=== PATIENT | female | born 1970 | race Caucasian/White ===

== ENCOUNTER 2020-08-01 14:54 | Outpatient (REF) | payer MEDICAID, SELFPAY ==
--- NOTE | 2020-08-01 15:28 | XR_ITS ---
EXAMINATION: XR ABDOMEN COMPLETE CLINICAL INDICATION: Abdominal pain COMPARISON: None TECHNIQUE: 2 views of the abdomen. FINDINGS: Moderate volume of stool throughout the colon. No abnormally dilated bowel loop. Nonobstructive bowel pattern. No radiopaque urinary calculus. The lung bases are normally aerated. XR/XR abdomen min 2V IMPRESSION: Unremarkable examination.
[2020-08-01 16:16] LABS: Glucose Urine UA NEG (NEG); Leukocyte Esterase Urine NEG (NEG); Nitrite Urine NEG (NEG); Specific Gravity - Urine 1.025 (1.005-1.025); Urine Blood NEG (NEG); Urine Ketones NEG (NEG); Urine Protein NEG (NEG-TRACE)
[2020-08-01 16:20] LABS: Appearance Urine CLEAR; Color Urine YELLOW
== END 2020-08-01 14:55 | disposition home or self-care (01) ==
LOC: HO.LAB 14:54
PROVIDERS: PCP Internal Medicine; Visit Provider Internal Medicine
DX: R10.9 Unspecified abdominal pain (principal)
CPT/HCPCS: 74019; 81003

== ENCOUNTER 2020-08-04 19:14 | Emergency (ER) | payer MEDICAID, SELFPAY ==
[2020-08-04 20:04] VITALS: BP 138/74; PULSE 80; RESP 16; TEMP 37.1; O2SAT 98; BMI 21.2
[2020-08-04 20:36] LABS: Glucose Urine UA NEG (NEG); Leukocyte Esterase Urine NEG (NEG); Nitrite Urine NEG (NEG); Specific Gravity - Urine 1.025 (1.005-1.025); Urine Blood NEG (NEG); Urine Ketones NEG (NEG); Urine Protein NEG (NEG-TRACE)
[2020-08-04 20:38] LABS: Appearance Urine CLEAR; Color Urine YELLOW
[2020-08-04 20:39] LABS: UPreg QC Valid YES; Urine Pregnancy NEGATIVE (NEGATIVE)
--- NOTE | 2020-08-04 21:41 | PC.NURSE ---
reports no senes of taste or smell since november. 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
[2020-08-04 21:48] LABS: MANUAL DIFF FLAG NO
[2020-08-04 21:50] LABS: Basophils Percent Auto 0.1 % (0-2); Eosinophils Absolute Auto 0.1 X10*3/uL (0.0-0.4); Eosinophils Percent Auto 1.2 % (0-4); Hematocrit 41.7 % (37-47); Hemoglobin 13.7 g/dl (12.0-16.0); Imm Gran Abs Auto 0.02 X10*3/uL (0.00-0.03); Imm Gran Pct Auto 0.3 % (0.0-0.4); Lymphocytes Absolute Auto 1.9 X10*3/uL (1.2-4.9); Lymphocytes Percent Auto 25.6 % (20-40); Mean Corpuscular HGB Conc 32.9 g/dl (31.0-35.0); Mean Corpuscular Hemoglobin 29.2 pg (27.0-33.0); Mean Corpuscular Volume 88.9 fL (80-98); Mean Platelet Volume 9.4 fL (9.4-12.3); Monocytes Absolute Auto 0.5 X10*3/uL (0.1-1.2); Monocytes Percent Auto 6.6 % (2-11); Neutrophils Percent Auto 66.2 % (45-73); Platelet Count 262 X10*3/uL (160-400); Red Blood Count 4.69 X10*6/uL (4.20-5.50); Red Cell Distribution Width 12.6 % (11.0-16.0); White Blood Count 7.5 X10*3/uL (4.8-10.8)
[2020-08-04] MEDS: Ketorolac Tromethamine 30 MG/ML VIAL IVPUSH (22:10)
[2020-08-04] MEDS: ondansetron HCL 4 MG/2 ML VIAL IVPUSH (22:10)
[2020-08-04] MEDS: 0.9 % Sodium Chloride 1,000 ML 999 ML IVCONT (22:10)
[2020-08-04 22:12] LABS: Alanine Aminotransferase 17 U/L (0-31); Albumin Level 4.6 g/dL (3.5-5.0); Alkaline Phosphatase 99 U/L (39-117); Anion Gap 12 (12-20); Aspartate Amino Transferase 24 U/L (5-31); Bilirubin Total 0.4 mg/dL (0.0-1.0); Blood Urea Nitrogen 13 mg/dL (9-16); Calcium 9.2 mg/dL (8.4-10.2); Carbon Dioxide 30 mmol/L (22-29); Chloride 101 mmol/L (96-108); Creatinine Clr Calc Pharmacy 67.9; Estimated Glomerular Filt Rate > 60; Glucose Random 72 mg/dL (60-115); Lipase 18 U/L (8-78); Potassium 4.3 mmol/l (3.3-5.1); Sodium 139 mmol/L (135-145); Total Protein 7.8 g/dL (6.5-8.0)
--- NOTE | 2020-08-04 22:17 | PC.NURSE ---
patient requesting discharge before 11pm if possible. notified. Lab results are within normal limits and were also reviewed by . Plan to discharge home.
--- NOTE | 2020-08-04 22:20 | ED_ITS ---
HPI - Back Pain/Injury General Chief Complaint: Urogenital-Female Stated Complaint: flank pain Time Seen by Provider: 08/04/20 21:37 Source: patient Mode of arrival: ambulatory Limitations: no limitations History of Present Illness HPI Narrative: patient with history of constipation, alcohol use and chronic back pain complaining of right flank area pain for last 3 weeks had x-ray and urine done 3 days ago which was negative patient been constipated for a while had a bowel movement yesterday pain in the right flank area increases on movements no urinary symptoms no blood in the urine MD elicited complaint: back pain Pertinent past history: prior back pain Onset (ago): week(s) (3) Timing: intermittent Severity: moderate Similar Symptoms Previously: Yes Quality: dull Radiation: none Exacerbating factors: none and movement Associated symptoms: denies other symptoms Related Data Allergies Allergy/AdvReac Type Severity Reaction Status Date / Time penicillin V Allergy Unknown Swelling Verified 08/04/20 20:03 Penicillins [PENICILLINS] Allergy Unknown SWELLING Verified 08/04/20 20:03 Sulfa (Sulfonamide Allergy Unknown SWELLING Verified 08/04/20 20:03 Antibiotics) [SULFA (SULFONAMIDE ANTIBIOTICS)] Review of Systems Review of Systems: REVIEW OF SYSTEMS: Pertinent positives and negatives are s tated above in the history. GEN: no fevers, chills, fatigue HEENT: no nasal congestion, sore throat, ear pain NEURO: no headache, dizziness, focal weakness PULM: no cough, shortness of breath CV: no chest pain, palpitations, LE edema ABD: no abdominal pain, nausea, vomiting, diarrhea, constipation present : dysuria +, no urgency, frequency SKIN: no rash ROS otherwise negative x 10 PMFSH Past Medical History Medical History High cholesterol Migraine Social History Social History Advance Directives: No Advance Directives Information Provided: No Physical Exam Vital Signs: Vital Signs: Last Vital Signs Temp 98.7 F 08/04/20 20:04 Pulse 80 08/04/20 20:04 Resp 16 08/04/20 20:04 BP 138/74 08/04/20 20:04 Pulse Ox 98 08/04/20 20:04 Body Mass Index 21.2 Appearance: Alert. Oriented X3. No acute distress. Eyes: Pupils equal, round and reactive to light. ENT: Pharynx normal. Neck: Normal inspection. Neck supple. CVS: Normal heart rate and rhythm. Pulses normal. Respiratory: No respiratory distress. Breath sounds normal. Abdomen: Soft and nontender. diffuse tenderness right flank area no spinal tenderness Skin: Skin warm and dry. Normal skin color. Normal skin turgor. Extremities: No lower extremity edema. Good range of movement Neuro: Oriented X 3. No motor deficit. No sensory deficit. Course Course Course Narrative: patient has nonspecific pain right back with normal urine and normal white counts normal labs likely muscular pain which increases on movement s will discharge her home on tramadol and Flexeril MDM - Back Pain/Injury Differential Diagnosis Differential diagnosis: Likely strain of lumbar region, renal colic and pyelonephritis Medical Records Attestation: I reviewed the patient's medical records. Lab Data Attestation: I reviewed the patient's lab results. Result diagrams: 08/04/20 21:40 08/04/20 21:40 Labs: Lab Results 08/04/20 08/04/20 08/04/20 Range/Units 20:22 21:40 21:40 WBC 7.5 (4.8-10.8) X10*3/uL RBC 4.69 (4.20-5.50) X10*6/uL Hgb 13.7 (12.0-16.0) g/dl Hct 41.7 (37-47) % MCV 88.9 (80-98) fL MCH 29.2 (27.0-33.0) pg MCHC 32.9 (31.0-35.0) g/dl RDW 12.6 (11.0-16.0) % Plt Count 262 (160-400) X10*3/uL MPV 9.4 (9.4-12.3) fL Immature Gran % (Auto) 0.3 (0.0-0.4) % Neut % (Auto) 66.2 (45-73) % Lymph % (Auto) 25.6 (20-40) % [place] % (Auto) 6.6 (2-11) % Eos % (Auto) 1.2 (0-4) % Baso % (Auto) 0.1 (0-2) % Lymph # (Auto) 1.9 (1.2-4.9) X10*3/uL [place] # (Auto) 0.5 (0.1-1.2) X10*3/uL Eos # (Auto) 0.1 (0.0-0.4) X10*3/uL Baso # (Auto) 0.0 (0.0-0.2) X10*3/uL Abs Immat Gran (auto) 0.02 (0.00-0.03) X10*3/uL Absolute Neuts (auto) 5.0 (2.0-8.3) X10*3/uL Absolute Nucleated RBC 0.000 (0.0-0.012) X10*3/uL Nucleated RBC % (auto) 0.0 (0.0-0.2) /100WBC Hold Blue Top SEE NOTE Sodium (135-145) mmol/L Potassium (3.3-5.1) mmol/l Chloride (96-108) mmol/L Carbon Dioxide (22-29) mmol/L Anion Gap (12-20) BUN (9-16) mg/dL Creatinine (0.5-1.4) mg/dL Estim Creat Clear Calc Estimated GFR Random Glucose (60-115) mg/dL Calcium (8.4-10.2) mg/dL Total Bilirubin (0.0-1.0) mg/dL AST (5-31) U/L ALT (0-31) U/L Alkaline Phosphatase (39-117) U/L Total Protein (6.5-8.0) g/dL Albumin (3.5-5.0) g/dL Lipase (8-78) U/L Urine Color YELLOW Urine Appearance CLEAR Urine pH 6.0 (5.0-8.0) Ur Specific [place] 1.025 (1.005-1.025) Urine Protein NEG (NEG-TRACE) MG/DL Urine Glucose (UA) NEG (NEG) MG/DL Urine Ketones NEG (NEG) MG/DL Urine Blood NEG (NEG) Urine Nitrite NEG (NEG) Ur Leukocyte Esterase NEG (NEG) Urine Test NEGATIVE (NEGATIVE) 08/04/20 Range/Units 21:40 WBC (4.8-10.8) X10*3/uL RBC (4.20-5.50) X10*6/uL Hgb (12.0-16.0) g/dl Hct (37-47) % MCV (80-98) fL MCH (27.0-33.0) pg MCHC (31.0-35.0) g/dl RDW (11.0-16.0) % Plt Count (160-400) X10*3/uL MPV (9.4-12.3) fL Immature Gran % (Auto) (0.0-0.4) % Neut % (Auto) (45-73) % Lymph % (Auto) (20-40) % [place] % (Auto) (2-11) % Eos % (Auto) (0-4) % Baso % (Auto) (0-2) % Lymph # (Auto) (1.2-4.9) X10*3/uL [place] # (Auto) (0.1-1.2) X10*3/uL Eos # (Auto) (0.0-0.4) X10*3/uL Baso # (Auto) (0.0-0.2) X10*3/uL Abs Immat Gran (auto) (0.00-0.03) X10*3/uL Absolute Neuts (auto) (2.0-8.3) X10*3/uL Absolute Nucleated RBC (0.0-0.012) X10*3/uL Nucleated RBC % (auto) (0.0-0.2) /100WBC Hold Blue Top Sodium 139 (135-145) mmol/L Potassium 4.3 (3.3-5.1) mmol/l Chloride 101 (96-108) mmol/L Carbon Dioxide 30 H (22-29) mmol/L Anion Gap 12 (12-20) BUN 13 (9-16) mg/dL Creatinine 0.81 (0.5-1.4) mg/dL Estim Creat Clear Calc 67.9 Estimated GFR > 60 Random Glucose 72 (60-115) mg/dL Calcium 9.2 (8.4-10.2) mg/dL Total Bilirubin 0.4 (0.0-1.0) mg/dL AST 24 (5-31) U/L ALT 17 (0-31) U/L Alkaline Phosphatase 99 (39-117) U/L Total Protein 7.8 (6.5-8.0) g/dL Albumin 4.6 (3.5-5.0) g/dL Lipase 18 (8-78) U/L Urine Color Urine Appearance Urine pH (5.0-8.0) Ur Specific [place] (1.005-1.025) Urine Protein (NEG-TRACE) MG/DL Urine Glucose (UA) (NEG) MG/DL Urine Ketones (NEG) MG/DL Urine Blood (NEG) Urine Nitrite (NEG) Ur Leukocyte Esterase (NEG) Urine Test (NEGATIVE)
== END 2020-08-04 22:44 | disposition home or self-care (01) ==
PROVIDERS: Emergency Provider Internal Medicine
DX: R10.9 Unspecified abdominal pain (principal); M54.5 Low back pain
CPT/HCPCS: 36415; 80053; 81003; 81025; 83690; 85025; 96361; 96374; 96375; 99283; 99284; J1885; J2405

== ENCOUNTER 2021-02-03 13:00 | Outpatient (REF) | payer MEDICAID, SELFPAY ==
--- NOTE | ~2021-02-03 | US_ITS ---
EXAMINATION: PELVIC ULTRASOUND CLINICAL INFORMATION: Left lower quadrant pain COMPARISON: None TECHNIQUE: Transabdominal and transvaginal pelvic ultrasound was performed. Transvaginal exam was performed for better visualization of uterus and ovaries. FINDINGS: The uterus is anteverted and measures 6 x 2.7 x 3.5 cm. There is a 2.4 x 2.3 x 1.9 cm heterogeneous lesion left in the lower uterine body suggestive of a subserosal fibroid. The uterus is heterogeneous appearing. The endometrium is not well delineated from the myometrium and difficult to measure. There are nabothian cysts in the cervix. The right ovary is normal-appearing and measures 2.3 x 1 x 1.7 cm. The left ovary has been removed. There is no fluid in the pelvis. US/US transvaginal IMPRESSION: Heterogeneous appearing uterus. The endometrium cannot be delineated. 2.4 x 2.3 x 1.9 cm subserosal left lower uterine body fibroid. Normal-appearing right ovary.
--- NOTE | ~2021-02-03 | US_ITS ---
EXAMINATION: PELVIC ULTRASOUND CLINICAL INFORMATION: Left lower quadrant pain COMPARISON: None TECHNIQUE: Transabdominal and transvaginal pelvic ultrasound was performed. Transvaginal exam was performed for better visualization of uterus and ovaries. FINDINGS: The uterus is anteverted and measures 6 x 2.7 x 3.5 cm. There is a 2.4 x 2.3 x 1.9 cm heterogeneous lesion left in the lower uterine body suggestive of a subserosal fibroid. The uterus is heterogeneous appearing. The endometrium is not well delineated from the myometrium and difficult to measure. There are nabothian cysts in the cervix. The right ovary is normal-appearing and measures 2.3 x 1 x 1.7 cm. The left ovary has been removed. There is no fluid in the pelvis. US/US pelvic complete IMPRESSION: Heterogeneous appearing uterus. The endometrium cannot be delineated. 2.4 x 2.3 x 1.9 cm subserosal left lower uterine body fibroid. Normal-appearing right ovary.
== END 2021-02-03 13:01 | disposition home or self-care (01) ==
LOC: HO.US 13:00
PROVIDERS: Visit Provider Advanced Practice Midwife
DX: R10.32 Left lower quadrant pain (principal)
CPT/HCPCS: 76830; 76856

== ENCOUNTER 2021-03-30 16:21 | Outpatient (REF) | payer MEDICAID, SELFPAY ==
--- NOTE | ~2021-03-30 | XR_ITS ---
EXAMINATION: XR LUMBOSACRAL SPINE WITH OBLIQUES CLINICAL INFORMATION: Unspecified abdominal pain COMPARISON: None TECHNIQUE: AP, both oblique, and lateral views of the lumbar spine. Lateral view of the lumbosacral junction. FINDINGS: There is normal lumbar lordosis. The vertebral heights and alignment is normal. There is loss of L5-S1 disc height with moderate ventral spondylosis. On oblique views there is no pars defect visualized. No acute fracture or lytic process seen. The paravertebral soft tissues are normal. XR/XR lumbar spine 4V min IMPRESSION: Mild degenerative disc changes L5-S1 disc level with spondylosis. No visible acute fracture or dislocation.
== END 2021-03-30 16:22 | disposition home or self-care (01) ==
LOC: HO.XRAY 16:21
PROVIDERS: PCP Internal Medicine; Visit Provider Internal Medicine
DX: R10.9 Unspecified abdominal pain (principal)
CPT/HCPCS: 72110

== ENCOUNTER → 2021-04-27 14:28 | Outpatient (BNVA) | payer MEDICAID, SELFPAY | PROVIDERS: PCP Internal Medicine; Referring Provider Internal Medicine; Visit Provider Physician Assistant | DX: K59.09 Other constipation (principal); R14.0 Abdominal distension (gaseous); R10.9 Unspecified abdominal pain | CPT/HCPCS: 99212 ==

== ENCOUNTER 2021-04-30 11:48 | Outpatient (REF) | payer MEDICAID, SELFPAY ==
--- NOTE | ~2021-04-30 | XR_ITS ---
EXAMINATION: XR ABDOMEN KUB CLINICAL INDICATION: Constipation. COMPARISON: Abdominal radiographs dated 08/01/2020. TECHNIQUE: AP views of the abdomen. FINDINGS: Moderate to severe stool burden. Nonobstructive bowel gas pattern. No abnormal soft tissue calcification. Pelvic phleboliths. No acute osseous abnormality. XR/XR KUB IMPRESSION: Moderate to severe stool burden.
[2021-04-30 12:33] LABS: MANUAL DIFF FLAG NO
[2021-04-30 12:43] LABS: Basophils Percent Auto 0.6 % (0-2); Eosinophils Absolute Auto 0.4 X10*3/uL (0.0-0.4); Eosinophils Percent Auto 7.9 % (0-4); Hematocrit 41.1 % (37-47); Hemoglobin 13.5 g/dl (12.0-16.0); Imm Gran Abs Auto 0.02 X10*3/uL (0.00-0.03); Imm Gran Pct Auto 0.4 % (0.0-0.4); Lymphocytes Absolute Auto 2.4 X10*3/uL (1.2-4.9); Lymphocytes Percent Auto 43.7 % (20-40); Mean Corpuscular HGB Conc 32.8 g/dl (31.0-35.0); Mean Corpuscular Hemoglobin 30.6 pg (27.0-33.0); Mean Corpuscular Volume 93.2 fL (80-98); Mean Platelet Volume 9.9 fL (9.4-12.3); Monocytes Absolute Auto 0.4 X10*3/uL (0.1-1.2); Neutrophils Absolute Auto 2.2 X10*3/uL (2.0-8.3); Neutrophils Percent Auto 40.4 % (45-73); Platelet Count 225 X10*3/uL (160-400); Red Blood Count 4.41 X10*6/uL (4.20-5.50); Red Cell Distribution Width 13.2 % (11.0-16.0); White Blood Count 5.5 X10*3/uL (4.8-10.8)
[2021-04-30 13:15] LABS: Alanine Aminotransferase 16 U/L (0-31); Albumin Level 4.1 g/dL (3.5-5.0); Alkaline Phosphatase 85 U/L (39-117); Anion Gap 12 (12-20); Aspartate Amino Transferase 21 U/L (5-31); Bilirubin Total 0.3 mg/dL (0.0-1.0); Blood Urea Nitrogen 11 mg/dL (9-16); Calcium 9.3 mg/dL (8.4-10.2); Carbon Dioxide 30 mmol/L (22-29); Chloride 105 mmol/L (96-108); Estimated Glomerular Filt Rate > 60; Glucose Random 104 mg/dL (60-115); Lipase 25 U/L (8-78); Sodium 142 mmol/L (135-145); Total Protein 6.8 g/dL (6.5-8.0)
[2021-04-30 13:38] LABS: Thyroid Stimulating Hormone 3.01 uIU/mL (0.32-4.0)
== END 2021-04-30 11:49 | disposition home or self-care (01) ==
LOC: HO.XRAY 11:48
PROVIDERS: PCP Internal Medicine; Visit Provider Physician Assistant
DX: K59.09 Other constipation (principal); R10.11 Right upper quadrant pain; R14.0 Abdominal distension (gaseous)
CPT/HCPCS: 36415; 74018; 80053; 83690; 84443; 85025

== ENCOUNTER 2021-08-26 11:11 | Emergency (ER) | payer MEDICAID, SELFPAY ==
--- NOTE | ~2021-08-26 | XR_ITS ---
EXAMINATION: XR SHOULDER, RIGHT XR CLAVICLE, RIGHT CLINICAL INFORMATION: Pain after fall COMPARISON: None TECHNIQUE: 4 views of the right shoulder. 2 additional views of the right clavicle. FINDINGS: There is no fracture or dislocation. The glenohumeral joint is well aligned. The joint space is maintained. The acromioclavicular joint is intact. The clavicle is intact. The visualized ribs are intact. The visualized lung is clear. XR/XR clavicle RT IMPRESSION: No fracture or malalignment.
--- NOTE | ~2021-08-26 | XR_ITS ---
EXAMINATION: XR SHOULDER, RIGHT XR CLAVICLE, RIGHT CLINICAL INFORMATION: Pain after fall COMPARISON: None TECHNIQUE: 4 views of the right shoulder. 2 additional views of the right clavicle. FINDINGS: There is no fracture or dislocation. The glenohumeral joint is well aligned. The joint space is maintained. The acromioclavicular joint is intact. The clavicle is intact. The visualized ribs are intact. The visualized lung is clear. XR/XR shoulder RT min 2V IMPRESSION: No fracture or malalignment.
--- NOTE | ~2021-08-26 | XR_ITS ---
EXAMINATION: XR CHEST CLINICAL INFORMATION: Right-sided pain after fall COMPARISON: None TECHNIQUE: Frontal view of the chest was obtained. FINDINGS: No significant abnormality is noted involving the heart, lungs, mediastinum, bony thorax or soft tissues. XR/XR chest 1V IMPRESSION: Unremarkable examination.
[2021-08-26 11:41] VITALS: BP 133/62; PULSE 62; RESP 17; TEMP 36.7; O2SAT 97; BMI 20.3
--- NOTE | 2021-08-26 14:40 | ED.FALL ---
HPI - Fall General Chief Complaint: Fall Stated Complaint: fall/shoulder pain & SOB Time Seen by Provider: 08/26/21 14:30 Source: patient Mode of arrival: ambulatory History of Present Illness HPI Narrative: 50-year-old female with a past medical history of migraines, hyperlipidemia, chronic constipation, presenting to the ED complaining right shoulder and right-sided chest wall pain s/p falling out of bed onto floor yesterday morning. Reports sleeping and fell out of bed onto wood floor, denies head trauma or LOC. Denies taking anticoagulation. Reports pain movement deep breathing. Denies nausea, vomiting,SOB complaint: fall Onset (ago): day(s) Related Data Home Medications Medication Instructions Recorded Confirmed atorvastatin 20 mg tablet 20 mg PO BEDTIME 04/27/21 clindamycin HCl 150 mg capsule 150 mg PO TID 04/27/21 Previous Rx's Medication Instructions Recorded bisacodyl 10 mg rectal suppository 10 mg MA DAILY PRN #20 ea 04/27/21 (Dulcolax (bisacodyl)) docusate sodium 100 mg capsule 200 mg PO BEDTIME #60 cap 04/27/21 (Colace) hydrocortisone 1 %-pramoxine 1 % 1 appl MA BEDTIME PRN #10 g 04/27/21 rectal foam (Proctofoam HC) methylcellulose (laxative) 500 mg 500 mg PO BID #60 tab 04/27/21 tablet (Citrucel) acetaminophen 500 mg tablet 500 mg PO Q6H PRN #20 tab 08/26/21 (Tylenol Extra Strength) cyclobenzaprine 5 mg tablet 5 mg PO Q8H PRN 5 Days #14 tab 08/26/21 lidocaine 5 % topical patch 1 patch TOPICAL DAILY PRN #30 ea 08/26/21 (Lidoderm) MDD remove after 12 hours naproxen 500 mg tablet 500 mg PO BID PRN 10 Days #20 tab 08/26/21 Allergies Allergy/AdvReac Type Severity Reaction Status Date / Time penicillin V Allergy Intermediate Swelling Verified 08/26/21 11:41 Penicillins [PENICILLINS] Allergy Intermediate SWELLING Verified 08/26/21 11:41 Sulfa (Sulfonamide Allergy Intermediate SWELLING Verified 08/26/21 11:41 Antibiotics) [SULFA (SULFONAMIDE ANTIBIOTICS)] Review of Systems Review of Systems: Constitutional:No Fever, No Chills, No Fatigue, No Malaise ENT/Mouth: No Ear Pain, No Nasal Congestion, No Sinus Pain, No Hoarseness, No sore throat Eyes: No Eye Pain, No Swelling, No Redness,No Vision Changes Cardiovascular: + Chest Wall Pain, No SOB, No Dyspnea on Exertion, No Edema, No Palpitations Respiratory: No Cough, No Dyspnea Gastrointestinal: No Nausea, No Vomiting, No Diarrhea, No Constipation, No Abdominal pain Genitourinary: No irregular bleeding, No Dysuria, No Hematuria,No Flank Pain Musculoskeletal: + joint pain, No Myalgias, No Joint Swelling Skin: No Skin Lesions, No rash Neuro: No Weakness, No Numbness, No Paresthesias, No Loss of Consciousness, No Headache erance Yes all other systems are reviewed and are negative [facility] Past Medical History Attestation statement: The following information was validated with the patient. Medical History Abdominal bloating with cramps Chronic constipation High cholesterol Migraine Surgical History Hx of colonoscopy Social History Social History Household Members Other:: Single Alcohol intake: current Patient Tobacco Use Status: Current everyday Tobacco user Advance Directives: No Advance Directives Information Provided: No Patient : No Current occupational status: unemployed Physical Exam Vital Signs: Vital Signs: Last Vital Signs Temp 98.1 F 08/26/21 11:41 Pulse 62 08/26/21 11:41 Resp 17 08/26/21 11:41 BP 133/62 08/26/21 11:41 Pulse Ox 97 08/26/21 11:41 BMI result Body Mass Index 20.3 Const: General: cooperative, healthy appearing, no acute distress, alert and awake Orientation/consciousness: patient oriented x3 Limitations: no limitations HENMT: Head: Yes normal to inspection and Yes atraumatic Ears: hearing grossly normal bilaterally General nose exam: Normal external nose present Face and sinus: Yes normal facial exam Eyes: General: appearance normal, both eyes and all related structures EOM: EOMs intact bilaterally Neck: Other: No midline cervical spinous tenderness Neck: Yes normal visual inspection Chest: Other: + mild right-sided mid axillary chest wall tenderness to palpation reproducing subjective complaint Chest palpation & inspection: normal inspection of the chest, no crepitus and no masses Resp: Effort & Inspection: normal respiratory effort and no respiratory distress Auscultation: clear to auscultation bilaterally Cardio: Rate: regular rate Heart sounds: S1 normal heart sound present and S2 normal heart sound present GI: Inspection: Yes normal to inspection Palpation (GI): Soft to palpation, nontender, no guarding and not rigid Back/Spine/Pelvis: Other: No midline thoracic/lumbar spinous tenderness Skin: Rashes: no rashes Wounds: no wounds Neuro: General: patient oriented x3 Gait exam (Neuro): Normal gait present Extrem: Other: Right clavicle nontender/no deformity. Right shoulder with AC joint & deltoid tenderness. Pain with ROM, full abduction/extension limited secondary to pain. NV intact distally General: Yes normal to inspection MDM - Fall MDM Narrative Medical decision making narrative: 50-year-old female with a past medical history of migraines, hyperlipidemia, chronic constipation, presenting to the ED complaining right shoulder and right-sided chest wall pain s/p falling out of bed onto floor yesterday morning. On exam vital signs stable, NAD/nontoxic, physical exam as above. Concern for fracture vs MSK pain/strain/spasming vs rib contusion vs tendon/ligamental injury Plan: X-rays Medical Records Attestation: I reviewed the patient's medical records. Lab Data Attestation: I reviewed the patient's lab results. Discharge Plan Discharge Clinical Impression: Contusion of rib Qualifiers: Encounter type: initial encounter Laterality: right Qualified Code(s): S20.211A - Contusion of right front wall of thorax, initial encounter Acute shoulder pain Qualifiers: Laterality: right Qualified Code(s): M25.511 - Pain in right shoulder Patient Disposition: Home, Self-Care Instructions: Contusion in Adults (ED), Arthralgia (ED) Additional Instructions: Your x-rays are unremarkable, they do not show any fractures You likely have a rib contusion/may have ligamentous or tendon injury Flexeril is a muscle relaxer, take at night as it makes you drowsy, do not drive, drink alcohol, or operate machinery while taking it Naproxen as an anti-inflammatory / pain medication, take with food Lidoderm patches are numbing patches, apply to painful area In addition take Tylenol at home If symptoms persist or worsen, pain becomes unbearable, you developed urinary retention or incontinence, or weakness return to the ED Prescriptions: New acetaminophen [Tylenol Extra Strength] 500 mg tablet 500 mg PO Q6H PRN (Reason: pain or fever) Qty: 20 RF: 0 lidocaine [Lidoderm] 5 % adhesive patch,medicated 1 patch topical DAILY MDD remove after 12 hours PRN (Reason: pain) Qty: 30 RF: 0 naproxen 500 mg tablet 500 mg PO BID PRN (Reason: pain) 10 Days Qty: 20 RF: 0 cyclobenzaprine 5 mg tablet 5 mg PO Q8H PRN (Reason: pain (scale score 7-10)) 5 Days Qty: 14 RF: 0 No Action clindamycin HCl 150 mg capsule 150 mg PO TID RF: 0 atorvastatin 20 mg tablet 20 mg PO BEDTIME RF: 0 docusate sodium [Colace] 100 mg capsule 200 mg PO BEDTIME Qty: 60 RF: 5 bisacodyl [Dulcolax (bisacodyl)] 10 mg suppository 10 mg MA DAILY PRN (Reason: constipation) Qty: 20 RF: 0 Citrucel 500 mg tablet 500 mg PO BID Qty: 60 RF: 5 Proctofoam HC 1-1 % foam 1 appl MA BEDTIME PRN (Reason: hemorrhoids) Qty: 10 RF: 1 Referrals: Gabriel Aly MD [Primary Care Provider] - 3 days Sarabjit López PA-C [Physician Mobile Application Architect] - 10 days (as needed)
[2021-08-26] MEDS: Ketorolac Tromethamine 30 MG/ML VIAL IM (14:50)
[2021-08-26] MEDS: Cyclobenzaprine HCl 5 MG TABLET PO (14:50)
== END 2021-08-26 15:11 | disposition home or self-care (01) ==
PROVIDERS: Emergency Provider Emergency Medicine; PCP Internal Medicine
DX: S20.211A Contusion of right front wall of thorax, initial encounter (principal); M25.511 Pain in right shoulder; W06.XXXA Fall from bed, initial encounter; Y93.9 Activity, unspecified; Y92.9 Unspecified place or not applicable; Y99.9 Unspecified external cause status
CPT/HCPCS: 71045; 73000; 73030; 96372; 99284; J1885

== ENCOUNTER 2021-09-23 10:42 | Outpatient (REF) | payer MEDICAID, SELFPAY ==
--- NOTE | ~2021-09-23 | XR_ITS ---
EXAMINATION: XR CHEST CLINICAL INFORMATION: Right-sided pain after fall. COMPARISON: 08/26/2021 TECHNIQUE: 2 views of the chest were obtained. FINDINGS: The cardiomediastinal silhouette is stable. The lungs are well expanded. No consolidation. Trace bilateral pleural effusions. No pneumothorax. No displaced rib fracture. XR/XR chest 2V IMPRESSION: No visible rib fracture. No pneumothorax. Trace bilateral pleural effusions.
== END 2021-09-23 10:43 | disposition home or self-care (01) ==
LOC: HO.XRAY 10:42
PROVIDERS: PCP Internal Medicine; Visit Provider Emergency Medicine
DX: R07.89 Other chest pain (principal); R59.1 Generalized enlarged lymph nodes
CPT/HCPCS: 71046; 80053; 83690; 84484; 85025; 85379; 85610; 85730; 87635; 93005; 99283; 99284

== ENCOUNTER 2021-09-23 19:50 | Emergency (ER) | payer MEDICAID, SELFPAY ==
--- NOTE | 2021-09-23 | ECG_ITS ---
Test Reason : abnormal labs Blood Pressure : / mmHG Vent. Rate : 078 BPM Atrial Rate : 078 BPM P-R Int : 114 ms QRS Dur : 082 ms QT Int : 354 ms P-R-T Axes : 028 -08 006 degrees QTc Int : 403 ms Normal sinus rhythm Nonspecific ST abnormality Abnormal ECG No previous ECGs available Referred By: Generic ED Physician Electronically Signed By:COSME GREY MD
[2021-09-23 20:55] VITALS: BP 166/69; PULSE 82; RESP 18; TEMP 36.7; O2SAT 95; BMI 21.2
[2021-09-23 21:53] LABS: MANUAL DIFF FLAG NO
[2021-09-23 21:55] LABS: Basophils Percent Auto 0.3 % (0-2); Eosinophils Absolute Auto 0.3 X10*3/uL (0.0-0.4); Eosinophils Percent Auto 4.1 % (0-4); Hematocrit 37.1 % (37.0-47.0); Hemoglobin 12.6 g/dl (12.0-16.0); Imm Gran Abs Auto 0.01 X10*3/uL (0.00-0.03); Imm Gran Pct Auto 0.1 % (0.0-0.4); Lymphocytes Percent Auto 43.6 % (20-40); Mean Corpuscular Hemoglobin 31.1 pg (27.0-33.0); Mean Corpuscular Volume 91.6 fL (80.0-98.0); Mean Platelet Volume 9.5 fL (9.4-12.3); Monocytes Absolute Auto 0.5 X10*3/uL (0.1-1.2); Monocytes Percent Auto 6.6 % (2-11); Neutrophils Absolute Auto 3.1 x10*3/uL (2.0-8.3); Neutrophils Percent Auto 45.3 % (45-73); Platelet Count 195 X10*3/uL (160-400); Red Blood Count 4.05 X10*6/uL (4.20-5.50); Red Cell Distribution Width 12.4 % (11.0-16.0); White Blood Count 6.8 X10*3/uL (4.8-10.8)
[2021-09-23 22:07] LABS: INTERNATIONAL NORM RATIO 0.9 (0.9-1.1); Prothrombin Time 10.3 SEC (9.9-13.0)
[2021-09-23 22:10] LABS: Alanine Aminotransferase 18 U/L (0-31); Albumin Level 3.9 g/dL (3.5-5.0); Alkaline Phosphatase 93 U/L (39-117); Anion Gap 10 (12-20); Aspartate Amino Transferase 24 U/L (5-31); Bilirubin Total 0.2 mg/dL (0.0-1.0); Blood Urea Nitrogen 13 mg/dL (9-16); Calcium 9.1 mg/dL (8.4-10.2); Carbon Dioxide 29 mmol/L (22-29); Chloride 105 mmol/L (96-108); Creatinine Clr Calc Pharmacy 64.8; Estimated Glomerular Filt Rate > 60; Glucose Random 101 mg/dL (60-115); Lipase 33 U/L (8-78); Partial Thromboplastin Time 30.7 SEC (24.1-38.0); Potassium 4.1 mmol/L (3.3-5.1); Sodium 140 mmol/L (135-145); Total Protein 6.6 g/dL (6.5-8.0)
[2021-09-23 22:13] LABS: COVID-19 Test Negative (Negative)
[2021-09-23 22:14] LABS: Troponin-I High Sensitivity < 3.5 ng/L (<3.5-17.0)
[2021-09-23 22:24] LABS: D Dimer High Sensitivity < 150 NG/ML
== END 2021-09-24 02:13 | disposition left against medical advice (07) ==
PROVIDERS: Emergency Medicine Emergency Medical Services; Emergency Provider Emergency Medicine; PCP Internal Medicine
DX: R07.9 Chest pain, unspecified (principal); R06.02 Shortness of breath; Z20.822 Contact with and (suspected) exposure to COVID-19; F17.200 Nicotine dependence, unspecified, uncomplicated
CPT/HCPCS: 80053; 83690; 84484; 85025; 85379; 85610; 85730; 87635; 93005; 99283; 99284

== ENCOUNTER 2021-11-11 11:03 | Outpatient (REF) | payer MEDICAID, SELFPAY ==
--- NOTE | ~2021-11-11 | CT_ITS ---
EXAMINATION: CT SOFT TISSUE NECK WITH CONTRAST CLINICAL INFORMATION: Enlarged lymph nodes. COMPARISON: None TECHNIQUE: Following the intravenous administration of 60 mL of Omnipaque 350 intravenous contrast, helical imaging was performed in the axial plane with generation of coronal and sagittal reformatted images. This CT examination was performed using dose optimization techniques as appropriate, variously including the following: *Automated exposure control *Adjustment of mA and/or kV according to patient size (this includes techniques or standardized protocols for targeted exams where dose is matched to indication/reason for exam; i.e. extremities or head) *Use of iterative reconstruction technique DLP: 196 mGy-cm FINDINGS: There are no enlarged lymph nodes. There are small bilateral cervical lymph nodes in zones 2 and 3. No enlarged lymph nodes are seen. The visualized paranasal sinuses, mastoid air cells and middle ears are clear. There is slight asymmetric prominence soft tissue seen in the right oropharynx, for example axial image 42 series 2. No abnormal enhancement or mass is seen. The nasopharynx, oropharynx and hypopharynx are otherwise normal. The larynx is normal. The salivary glands are normal. There is a small calcification in the right lobe of the thyroid gland. The visualized intracranial structures are normal. The vascular structures are normal. The lung apices are clear. There are mild degenerative changes of the mid cervical spine. CT/CT soft tissue neck w con IMPRESSION: No enlarged cervical lymph nodes seen. Slight asymmetric soft tissue fullness in the right oropharynx. Correlation with direct inspection recommended. Otherwise unremarkable exam.
[2021-11-11] MEDS: iohexoL 350 MG/ML 100 ML INFUS..BTL IV (12:05)
== END 2021-11-11 11:04 | disposition home or self-care (01) ==
LOC: HO.CT 11:03
PROVIDERS: PCP Internal Medicine; Visit Provider Internal Medicine
DX: R59.1 Generalized enlarged lymph nodes (principal)
CPT/HCPCS: 70491; Q9967

== ENCOUNTER 2022-02-24 12:45 | Outpatient (REF) | payer MEDICAID, SELFPAY ==
--- NOTE | ~2022-02-24 | XR_ITS ---
EXAMINATION: XR KNEE, BILATERAL CLINICAL INFORMATION: Knee pain. COMPARISON: None TECHNIQUE: 4 views each knee. FINDINGS: RIGHT KNEE: There is minimal loss of medial compartment joint space. The lateral and the patellofemoral compartment joint space is maintained normal. No visible acute fracture, dislocation or subluxation seen. The soft tissues are normal. LEFT KNEE: There is mild reduction in the medial compartment joint space. The patellofemoral and the lateral compartment joint space is maintained normal. No visible acute fracture, dislocation or subluxation seen. The soft tissues are normal. XR/XR knee LT 4V IMPRESSION: Mild loss of medial compartment joint space both knees. No visible acute fracture, dislocation, loose bodies or subluxation seen.
--- NOTE | ~2022-02-24 | XR_ITS ---
EXAMINATION: XR KNEE, BILATERAL CLINICAL INFORMATION: Knee pain. COMPARISON: None TECHNIQUE: 4 views each knee. FINDINGS: RIGHT KNEE: There is minimal loss of medial compartment joint space. The lateral and the patellofemoral compartment joint space is maintained normal. No visible acute fracture, dislocation or subluxation seen. The soft tissues are normal. LEFT KNEE: There is mild reduction in the medial compartment joint space. The patellofemoral and the lateral compartment joint space is maintained normal. No visible acute fracture, dislocation or subluxation seen. The soft tissues are normal. XR/XR knee RT 4V IMPRESSION: Mild loss of medial compartment joint space both knees. No visible acute fracture, dislocation, loose bodies or subluxation seen.
== END 2022-02-24 12:46 | disposition home or self-care (01) ==
LOC: HO.XRAY 12:45
PROVIDERS: PCP Internal Medicine; Visit Provider Internal Medicine
DX: M25.561 Pain in right knee (principal); M25.562 Pain in left knee
CPT/HCPCS: 73564

== ENCOUNTER 2022-03-19 07:15 | Outpatient (REF) | payer MEDICAID, SELFPAY ==
--- NOTE | ~2022-03-19 | XR_ITS ---
EXAMINATION: XR SHOULDER, RIGHT CLINICAL INFORMATION: Shoulder pain COMPARISON: Radiographs right shoulder 08/26/2021, 04/17/2019 TECHNIQUE: Right shoulder is imaged in 3 views. FINDINGS: AP view of the shoulder shows subtle cortical step off posterior medial right third rib, not seen on prior study suggesting sequela from trauma since prior imaging. Recommend correlation with patient's symptoms and clinical exam. The right lung apex is well distended and shows no pneumothorax or pleural reaction. The acromioclavicular alignment is normal. There are mild degenerative changes acromioclavicular joint. There is no shoulder or clavicle fracture or dislocation. No visible rotator cuff calcifications. XR/XR shoulder RT min 2V IMPRESSION: -Subtle cortical step off posterior medial right third rib not seen on prior imaging. Clinically correlate. -Otherwise no fracture or dislocation. No apical pneumothorax or pleural reaction. -Mild degenerative changes acromioclavicular joint.
--- NOTE | ~2022-03-19 | XR_ITS ---
EXAMINATION: XR KNEES, STANDING AP XR KNEE, RIGHT CLINICAL INFORMATION: Knee pain COMPARISON: Bilateral knee radiographs 02/24/2022 TECHNIQUE: Standing AP view of both knees is performed along with lateral and axial patella views of the right knee. FINDINGS: Right: No fracture, dislocation, destructive process, or suprapatellar effusion. Normal bony mineralization. Borderline joint narrowing medial compartment. No erosive change or chondrocalcinosis. Patellofemoral joint unremarkable. No lateralization or tilting patella. Left: Normal bony mineralization. Borderline joint narrowing medial compartment. No erosive change or chondrocalcinosis. No fracture or destructive process. XR/XR knee RT 2V IMPRESSION: -Borderline narrowing medial knee joint compartments. -No erosive change or chondrocalcinosis.
--- NOTE | ~2022-03-19 | XR_ITS ---
EXAMINATION: XR KNEES, STANDING AP XR KNEE, RIGHT CLINICAL INFORMATION: Knee pain COMPARISON: Bilateral knee radiographs 02/24/2022 TECHNIQUE: Standing AP view of both knees is performed along with lateral and axial patella views of the right knee. FINDINGS: Right: No fracture, dislocation, destructive process, or suprapatellar effusion. Normal bony mineralization. Borderline joint narrowing medial compartment. No erosive change or chondrocalcinosis. Patellofemoral joint unremarkable. No lateralization or tilting patella. Left: Normal bony mineralization. Borderline joint narrowing medial compartment. No erosive change or chondrocalcinosis. No fracture or destructive process. XR/XR knee standing BI IMPRESSION: -Borderline narrowing medial knee joint compartments. -No erosive change or chondrocalcinosis.
== END 2022-03-19 07:16 | disposition home or self-care (01) ==
LOC: HO.HOSX 07:15
PROVIDERS: Visit Provider Physician Assistant
DX: M17.11 Unilateral primary osteoarthritis, right knee (principal); M25.511 Pain in right shoulder
CPT/HCPCS: 20610; 73030; 73560; 73565; 99212; J1040

== ENCOUNTER 2022-06-17 15:58 | Outpatient (REF) | payer MEDICAID, SELFPAY ==
--- NOTE | ~2022-06-17 | XR_ITS ---
EXAMINATION: XR CHEST CLINICAL INFORMATION: Acute cough COMPARISON: None TECHNIQUE: 2 views of the chest were obtained. FINDINGS: No significant abnormality is noted involving the heart, lungs, mediastinum, bony thorax or soft tissues. XR/XR chest 2V IMPRESSION: Unremarkable chest examination.
[2022-06-17 16:17] LABS: MANUAL DIFF FLAG NO
[2022-06-17 16:34] LABS: Basophils Percent Auto 0.4 % (0-2); Eosinophils Absolute Auto 0.2 X10*3/uL (0.0-0.4); Eosinophils Percent Auto 3.7 % (0-4); Hematocrit 39.7 % (37.0-47.0); Hemoglobin 13.3 g/dl (12.0-16.0); Imm Gran Abs Auto 0.02 X10*3/uL (0.00-0.03); Imm Gran Pct Auto 0.4 % (0.0-0.4); Lymphocytes Absolute Auto 2.1 X10*3/uL (1.2-4.9); Lymphocytes Percent Auto 43.8 % (20-40); Mean Corpuscular HGB Conc 33.5 g/dl (31.0-35.0); Mean Corpuscular Hemoglobin 30.1 pg (27.0-33.0); Mean Corpuscular Volume 89.8 fL (80.0-98.0); Mean Platelet Volume 9.6 fL (9.4-12.3); Monocytes Absolute Auto 0.3 X10*3/uL (0.1-1.2); Monocytes Percent Auto 6.2 % (2-11); Neutrophils Absolute Auto 2.2 x10*3/uL (2.0-8.3); Neutrophils Percent Auto 45.5 % (45-73); Platelet Count 248 X10*3/uL (160-400); Red Blood Count 4.42 X10*6/uL (4.20-5.50); Red Cell Distribution Width 13.2 % (11.0-16.0); White Blood Count 4.8 X10*3/uL (4.8-10.8)
[2022-06-17 16:53] LABS: Anion Gap 14 (12-20); Blood Urea Nitrogen 16 mg/dL (9-16); Carbon Dioxide 25 mmol/L (22-29); Chloride 104 mmol/L (96-108); Estimated Glomerular Filt Rate > 60; Glucose Random 82 mg/dL (60-115); Potassium 4.3 mmol/L (3.3-5.1); Sodium 139 mmol/L (135-145)
[2022-06-17 17:16] LABS: Thyroid Stimulating Hormone 2.05 uIU/mL (0.32-4.0)
== END 2022-06-17 15:59 | disposition home or self-care (01) ==
LOC: HO.LAB 15:58
PROVIDERS: Internal Medicine; Visit Provider Internal Medicine
DX: R05.3 Chronic cough (principal); R11.0 Nausea
CPT/HCPCS: 36415; 71046; 80048; 84443; 85025

== ENCOUNTER 2022-06-22 17:05 | Emergency (ER) | payer MEDICAID, SELFPAY ==
--- NOTE | ~2022-06-22 | XR_ITS ---
EXAMINATION: XR mandible min 4V, XR hip RT min 2V, XR cervical spine 2V, XR shoulder RT min 2V CLINICAL INFORMATION: Reason for Exam fall COMPARISON: None. TECHNIQUE: 3 views cervical spine; 3 views right shoulder; 5 views mandible; AP pelvis and 2 views right hip FINDINGS: Cervical spine: C1-T1 are well visualized on the lateral view. Minimal grade 1 anterolisthesis at C7-T1. Additional subluxation. No acute fracture or prevertebral soft tissue swelling is seen. Atlantodens interval and C1-C2 alignment are maintained. Mild degenerative disc disease at C5-C6 and C6-C7 with mild disc height loss, endplate sclerosis, and endplate proliferative change. Uncovertebral spurring in the mid to lower cervical spine. Visualized lung apices are grossly clear. Right shoulder: No acute fracture or dislocation. Bony humeral joint space and acromiohumeral interval are maintained. AC joint is congruent and intact. Visualized right lung is grossly clear. Mandible: No mandibular fracture identified. The alignment of the TMJs is not well evaluated on this exam due to overlapping osseous structures. Paranasal sinuses appear normally aerated. Pelvis and right hip: No acute fracture or dislocation. Bilateral hip joint spaces are maintained. Pubic symphysis and sacroiliac joints are congruent and intact. Mid-lower sacrum is obscured by bowel gas. XR/XR shoulder RT min 2V IMPRESSION: 1. Minimal grade 1 anterolisthesis at C7-T1, likely due to facet arthrosis. No additional subluxation. 2. No acute cervical spine fracture. 3. No acute fracture or dislocation at the right shoulder. 4. No mandibular fracture identified. 5. No fracture or dislocation at the pelvis and right hip.
--- NOTE | ~2022-06-22 | CT_ITS ---
EXAMINATION: CT HEAD WITHOUT CONTRAST CLINICAL INFORMATION: Fall with head strike and severe pain COMPARISON: Head CT 06/24/2010 TECHNIQUE: Imaging was performed from the skull base to vertex without intravenous administration of contrast. This CT examination was performed using dose optimization techniques as appropriate, variously including the following: *Automated exposure control *Adjustment of mA and/or kV according to patient size (this includes techniques or standardized protocols for targeted exams where dose is matched to indication/reason for exam; i.e. extremities or head) *Use of iterative reconstruction technique Total exam dose length product: 612 mGy-cm FINDINGS: No intra or extra-axial fluid collection, hemorrhage, or mass. No ventriculomegaly. No midline shift or herniation. Basal cisterns are patent. Cuevas-white matter differentiation is maintained. No territorial encephalomalacia. No significant volume loss. There is no abnormal attenuation within the brain parenchyma. Small frontal scalp hematoma and swelling. No calvarial fracture. The mastoid air cells and visualized portions of the paranasal sinuses are well aerated. CT/CT head/brain wo IV con IMPRESSION: 1. Frontal scalp hematoma and swelling. No calvarial fracture. 2. No acute intracranial hemorrhage or other acute intracranial abnormality.
--- NOTE | ~2022-06-22 | XR_ITS ---
EXAMINATION: XR mandible min 4V, XR hip RT min 2V, XR cervical spine 2V, XR shoulder RT min 2V CLINICAL INFORMATION: Reason for Exam fall COMPARISON: None. TECHNIQUE: 3 views cervical spine; 3 views right shoulder; 5 views mandible; AP pelvis and 2 views right hip FINDINGS: Cervical spine: C1-T1 are well visualized on the lateral view. Minimal grade 1 anterolisthesis at C7-T1. Additional subluxation. No acute fracture or prevertebral soft tissue swelling is seen. Atlantodens interval and C1-C2 alignment are maintained. Mild degenerative disc disease at C5-C6 and C6-C7 with mild disc height loss, endplate sclerosis, and endplate proliferative change. Uncovertebral spurring in the mid to lower cervical spine. Visualized lung apices are grossly clear. Right shoulder: No acute fracture or dislocation. Bony humeral joint space and acromiohumeral interval are maintained. AC joint is congruent and intact. Visualized right lung is grossly clear. Mandible: No mandibular fracture identified. The alignment of the TMJs is not well evaluated on this exam due to overlapping osseous structures. Paranasal sinuses appear normally aerated. Pelvis and right hip: No acute fracture or dislocation. Bilateral hip joint spaces are maintained. Pubic symphysis and sacroiliac joints are congruent and intact. Mid-lower sacrum is obscured by bowel gas. XR/XR cervical spine 2V IMPRESSION: 1. Minimal grade 1 anterolisthesis at C7-T1, likely due to facet arthrosis. No additional subluxation. 2. No acute cervical spine fracture. 3. No acute fracture or dislocation at the right shoulder. 4. No mandibular fracture identified. 5. No fracture or dislocation at the pelvis and right hip.
--- NOTE | ~2022-06-22 | XR_ITS ---
EXAMINATION: XR mandible min 4V, XR hip RT min 2V, XR cervical spine 2V, XR shoulder RT min 2V CLINICAL INFORMATION: Reason for Exam fall COMPARISON: None. TECHNIQUE: 3 views cervical spine; 3 views right shoulder; 5 views mandible; AP pelvis and 2 views right hip FINDINGS: Cervical spine: C1-T1 are well visualized on the lateral view. Minimal grade 1 anterolisthesis at C7-T1. Additional subluxation. No acute fracture or prevertebral soft tissue swelling is seen. Atlantodens interval and C1-C2 alignment are maintained. Mild degenerative disc disease at C5-C6 and C6-C7 with mild disc height loss, endplate sclerosis, and endplate proliferative change. Uncovertebral spurring in the mid to lower cervical spine. Visualized lung apices are grossly clear. Right shoulder: No acute fracture or dislocation. Bony humeral joint space and acromiohumeral interval are maintained. AC joint is congruent and intact. Visualized right lung is grossly clear. Mandible: No mandibular fracture identified. The alignment of the TMJs is not well evaluated on this exam due to overlapping osseous structures. Paranasal sinuses appear normally aerated. Pelvis and right hip: No acute fracture or dislocation. Bilateral hip joint spaces are maintained. Pubic symphysis and sacroiliac joints are congruent and intact. Mid-lower sacrum is obscured by bowel gas. XR/XR mandible min 4V IMPRESSION: 1. Minimal grade 1 anterolisthesis at C7-T1, likely due to facet arthrosis. No additional subluxation. 2. No acute cervical spine fracture. 3. No acute fracture or dislocation at the right shoulder. 4. No mandibular fracture identified. 5. No fracture or dislocation at the pelvis and right hip.
[2022-06-22 17:32] VITALS: BP 136/74; BP 155/84; PULSE 57; PULSE 78; RESP 18; TEMP 36.1; O2SAT 95; O2SAT 97; BMI 17.6
[2022-06-22] MEDS: Acetaminophen 325 MG TABLET 650 MG PO (17:40)
--- OUTSIDE RECORDS SUMMARY | 2022-06-22 21:00 | XMS_ITS | Continuity of Care Document ---
:1970 Author Organization [facility] Address [address] [place] [id number]- Care Team Providers Name Role Phone Gabriel Aly MD Primary Care Physician [place] [facility] [place] - 01/22/[address] [id number] Attending Physician: Gabriel Aly MD Admitting Physician: Gabriel Aly MD Referring Physician: Gabriel Aly MD Allergies, Adverse Reactions, Alerts Substance Reaction Severity Status sulfADIAZINE SWELLING Active penicillins Active Immunizations Given and Recorded Vaccine Date Status Refusal Reason influenza virus vaccine, inactivated 07/09/15 Given influenza virus vaccine, inactivated1 07/24/13 Given tetanus/diphtheria/pertussis, acel(Tdap) 01/28/11 Given 1Admin Note: [facility] [place] busPIRone 15 mg oral tablet 1 tablet = 15 mg, By Mouth, 2 times a day, # 60 tablet, 6 Refills, Maintenance, 03/31/17 10:44:09 Start Date: 03/31/17 Status: OrderedCitrate of Magnesia 8.85% oral liquid 150 mL = 8.725 Gm, By Mouth, Once, # 300 mL, 0 Refills, Soft Stop, 04/28/17 6:59:09, Liquid Start Date: 04/28/17 Status: OrderedColace sodium 100 mg oral capsule 100 mg, 1, capsule, By Mouth, 2 times a day, PRN, with plenty of water, # 28 capsule, Refills 0, Tot. Refills 0, Maintenance, for constipation, 04/28/17 6:59:00, Print Requisition Start Date: 04/28/17 Stop Date: 05/12/17 Status: Ordereddiclofenac sodium 50 mg oral delayed release tablet 1 tablet = 50 mg, By Mouth, 2 times a day, # 60 tablet, 0 Refills, Maintenance, 05/13/17 8:21:57, ECTablet Start Date: 05/13/17 Stop Date: 06/12/17 Status: Orderedfluticasone 50 mcg/inh nasal spray 1 sprays, Nares, Both, 2 times a day, # 1 each, 3 Refills, Maintenance, 02/02/17 11:00:01, [place], 1 sprays Nares, Both 2 times a day Start Date: 02/02/17 Status: OrderedGlucosamine & Chondroitin with MSM oral tablet See Instructions, 1 tablet BID, # 60 tablet, 0 Refills, Maintenance, 03/19/16 14:15:07 Start Date: 03/19/16 Status: OrderedImitrex 50 mg oral tablet 1 tablet = 50 mg, By Mouth, Daily, PRN Headache, may repeat dose in 2 hours if needed, # 12 tablet, 6 Refills, Maintenance, 03/31/17 10:41:04 Start Date: 03/31/17 Status: OrderedLidoderm 5% film 1patch, Topically, Daily, # 30 patch, 0 Refills, Maintenance, 05/13/17 8:21:56, 1patch Topically Daily Start Date: 05/13/17 Status: OrderedRisperidone 2 times a day, 0 Refills, Maintenance, 01/05/18 17:46:30 EDT Start Date: 01/05/18 Status: OrderedSoma 350 mg oral tablet 350 mg, 1, tablet, By Mouth, Every 8 hours, OPIATE AGREEMENT DX LOW BACK PAIN M54.5 NEXT PICK fill date 07/20/2017 patient may fill for less, # 84 tablet, Refills 0, Tot. Refills 0, Maintenance, 06/21/17 7:52:40, Print Requisition Start Date: 06/21/17 Stop Date: 07/19/17 Status: OrderedZyrTEC 10 mg oral tablet 1 tablet = 10 mg, By Mouth, Daily, # 30 tablet, 0 Refills, Maintenance, 01/05/18 17:46:44 EDT, Tablet Start Date: 01/05/18 Status: Ordered Problem List Condition Effective Dates Status Health Status Informant Allergic rhinitis(Confirmed) Active Anxiety disorder(Confirmed) Active Cocaine abuse(Confirmed)1 09/22/16 Active Arthralgia(Confirmed) Active Low back pain(Confirmed) Active Migraine(Confirmed) 10/20/11 Active Sleep apnea(Confirmed) Active Smoking(Confirmed) Active 1[facility] altered mental status
--- OUTSIDE RECORDS SUMMARY | 2022-06-22 21:00 | XMS_ITS | Continuity of Care Document ---
:1970 Author Organization [facility] Address [address] [place] [address]- Care Team Providers Name Role Phone Gabriel Aly MD Primary Care Physician [phone] Encounter [facility] [place] Date(s): 03/30/21 - 06/26/[address] [id number] Attending Physician: Gabriel Aly MD Admitting Physician: Gabriel Aly MD Referring Physician: Gabriel Aly MD Allergies, Adverse Reactions, Alerts Substance Reaction Severity Status sulfADIAZINE SWELLING Active penicillins Active Immunizations Given and Recorded Vaccine Date Status Refusal Reason influenza virus vaccine, inactivated 07/09/15 Given influenza virus vaccine, inactivated1 07/24/13 Given tetanus/diphtheria/pertussis, acel(Tdap) 01/28/11 Given 1Admin Note: [facility] [place] Medications busPIRone 15 mg oral tablet 1 [...] 1 each, 3 Refills, Maintenance, 02/02/17 11:00:01, [place], 1 sprays Nares, Both 2 times a [...]
--- NOTE | 2022-06-22 21:11 | ED_ITS ---
HPI - Fall General Chief Complaint: Fall Stated Complaint: fall Time Seen by Provider: 06/22/22 20:37 Source: patient Mode of arrival: ambulatory Limitations: no limitations History of Present Illness HPI Narrative: Patient presents emergency department for evaluation of a mechanical trip and fall while at work. She states that she was not paying attention tripped over something on the floor and fell forward landing into the wall. Reports swelling to the forehead with significant pain and throbbing. Has intermittent dizziness, denies vision changes. Denies any loss of consciousness with the fall. Denies anticoagulants. Swelling has come down some since arrival to the emergency department but the headache is described as severe 06/28, and no improvement with ice or acetaminophen. She is additionally reporting pain to the right shoulder, right side of her jaw, and right hip/groin. Related Data Home Medications Medication Instructions Recorded Confirmed atorvastatin 20 mg tablet 20 mg PO BEDTIME 04/27/21 10/09/21 methadone 90 mg PO DAILY 10/09/21 10/09/21 polyethylene glycol 3350 17 gram 17 g PO DAILY 10/09/21 10/09/21 oral powder packet (Miralax) tizanidine 2 mg PO TID PRN Muscle Pain 10/09/21 10/09/21 Previous Rx's Medication Instructions Recorded bisacodyl 10 mg rectal suppository 10 mg OK DAILY PRN constipation 04/27/21 (Dulcolax (bisacodyl)) #20 ea docusate sodium 100 mg capsule 200 mg PO BEDTIME #60 caps 04/27/21 (Colace) acetaminophen 500 mg tablet 500 mg PO Q6H PRN pain or fever 08/26/21 (Tylenol Extra Strength) #20 tabs lidocaine 5 % topical patch 1 patch topical DAILY PRN pain #30 08/26/21 (Lidoderm) ea naproxen 500 mg tablet 500 mg PO BID PRN pain 10 days #20 08/26/21 tabs Allergies Allergy/AdvReac Type Severity Reaction Status Date / Time penicillin V Allergy Intermediate Swelling Verified 03/19/22 11:16 Penicillins [PENICILLINS] Allergy Intermediate SWELLING Verified 03/19/22 11:16 Sulfa (Sulfonamide Allergy Intermediate SWELLING Verified 03/19/22 11:16 Antibiotics) [SULFA (SULFONAMIDE ANTIBIOTICS)] Review of Systems Review of Systems: Constitutional: No fever, chills, weakness Skin: No rash or itching. Cardiovascular: No chest pain, chest pressure or chest discomfort. No palpitations or pedal edema. Respiratory: No shortness of breath, cough or sputum production. Gastrointestinal: No nausea, vomiting or diarrhea. No abdominal pain Genitourinary: No burning micturition. No urinary frequency or incontinence. Musculoskeletal: Positive joint pain as noted in HPI Neurologic: Positive headache. Positive dizziness. No numbness. No tingling. Psychiatric: No depression or anxiety. Yes all other systems are reviewed and are negative [facility] Past Medical History Attestation statement: The following information was validated with the patient. 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 Blood pr essure normal.? Heart rate normal.? Respiration rate normal. Temperature normal.? Oxygen saturation normal. Appearance: Alert.?Oriented to person, place and time. No acute distress.?Normal affect. Head: Normocephali. Hematoma to the right/midline forehead. Eyes: Pupils equal, round and reactive to light. EOMI. Conjunctiva and sclera normal? No raccoon eyes noted ENT: No Islas sign noted. No septal hematoma, nares patent bilaterally. External auditory canal normal tympanic membrane pearly velez and intact bilaterally. Full range of motion to jaw, no clicking, popping, or subluxation. Dentition normal, no fractured teeth. No lesions or lacerations of oropharynx. Moist mucous membranes. Neck: Normal inspection.? Neck supple.??No palpable tenderness, step-off, deformities. CVS: Heart sounds normal. Normal heart rate and rhythm.? Pulses normal.?? Respiratory: No respiratory distress.? Lung sounds clear to auscultation bilaterally?? Abdomen: Soft and non-tender. Normoactive bowel sounds. ?? Skin: Skin warm and dry.? Normal skin color.? Normal skin turgor.?? Extremities: No lower extremity edema.? Full AROM to bilateral upper and lower extremities. Neuro: Moves all extremities spontaneously. Sensation intact bilaterally. CN II- XII intact. No focal neuro deficits. Ambulatory with steady gait. Course Course Course Narrative: Patient is a 51-year-old female who presents to the emergency department for evaluation after mechanical trip and fall. Review of x-ray imaging obtained from triage reveals no acute cervical spine fracture subluxation, no fracture dislocation to the right shoulder, no mandibular fracture, fracture dislocation to the right hip or pelvis. She did have significant head strike upon injury with hematoma is present, reports a severe throbbing headache unrelieved with ice and acetaminophen. Although she did not have loss of consciousness or is not on anticoagulants, will obtain CT of the head to exclude subdural hematoma. Disposition pending results. Reevaluation(s) Reevaluation #1: Head CT with no acute intracranial abnormalities. Presence of a frontal scalp hematoma is noted on physical examination. Discussed these findings with patient. Advised plan of care for discharge home, rest, acetaminophen/ibuprofen as needed for pain, application of ice to the hematoma. Reviewed worsens and symptoms to return back to the emergency department for. Advised outpatient follow-up with her primary care provider. Provided with a return to work note. All questions were answered, patient discharged home in stable condition. Time: 22:46 MDM - Fall Medical Records Attestation: I reviewed the patient's medical records. Imaging Data c-spine XR: Radiologist's impression: XR/XR cervical spine 2V IMPRESSION: ? 1. Minimal grade 1 anterolisthesis at C7-T1, likely due to facet arthrosis. No additional subluxation. 2. No acute cervical spine fracture. XR hip: Radiologist's impression: XR/XR hip RT min 2V IMPRESSION: ? No fracture or dislocation at the pelvis and right hip. mandible XR: Radiologist's impression: XR/XR mandible min 4V IMPRESSION: ? No mandibular fracture identified. XR right shoulder: Radiologist's impression: XR/XR shoulder RT min 2V IMPRESSION: ?No acute fracture or dislocation at the right shoulder. CT scan - head: Radiologist's impression: CT/CT head/brain wo IV con IMPRESSION: ? 1. Frontal scalp hematoma and swelling. No calvarial fracture. 2. No acute intracranial hemorrhage or other acute intracranial abnormality. Discharge Plan Discharge Clinical Impression: Hematoma of frontal scalp Qualifiers: Encounter type: initial encounter Qualified Code(s): S00.03XA - Contusion of scalp, initial encounter Contusion Qualifiers: Encounter type: initial encounter Contusion area: hip Patient Disposition: Home, Self-Care Instructions: Scalp Contusion in Adults (ED) Additional Instructions: You can take ibuprofen 200 mg, 3 tablets (600mg) every 6-8 hours as needed for pain, in addition to Tylenol 500 mg, 2 tablets (1,000mg) every 4-6 hours as needed for pain, but not to exceed 3 doses daily (3,000mg).? Apply ice to the hematoma on your forehead. Be sure to rest tomorrow take the day off from work. Follow-up with your primary care provider as needed Return to the emergency department any new or worsening symptoms or concerns. Prescriptions: No Action polyethylene glycol 3350 [Miralax] 17 gram Powder In Packet 17 g PO DAILY methadone 90 mg PO DAILY tizanidine tablet 2 mg PO TID PRN (Reason: Muscle Pain) acetaminophen [Tylenol Extra Strength] 500 mg tablet 500 mg PO Q6H PRN (Reason: pain or fever) Qty: 20 0RF lidocaine [Lidoderm] 5 % adhesive patch,medicated 1 patch topical DAILY MDD remove after 12 hours PRN (Reason: pain) Qty: 30 0 RF Rx Instructions: leave on most painful area for up to 12 hrs naproxen 500 mg tablet 500 mg PO BID PRN (Reason: pain) 10 Days Qty: 20 0RF atorvastatin 20 mg tablet 20 mg PO BEDTIME docusate sodium [Colace] 100 mg capsule 200 mg PO BEDTIME Qty: 60 5RF bisacodyl [Dulcolax (bisacodyl)] 10 mg suppository 10 mg OK DAILY PRN (Reason: constipation) Qty: 20 0RF Stand Alone Forms: Work/School Release
== END 2022-06-22 23:07 | disposition home or self-care (01) ==
PROVIDERS: Emergency Provider Emergency Medicine Emergency Medical Services; PCP Internal Medicine
DX: S00.03XA Contusion of scalp, initial encounter (principal); R51.9 Headache, unspecified; M54.2 Cervicalgia; M25.552 Pain in left hip; M25.551 Pain in right hip; M25.511 Pain in right shoulder; Y29.XXXA Contact with blunt object, undetermined intent, initial encounter; Y93.9 Activity, unspecified; Y92.9 Unspecified place or not applicable; Y99.0 Civilian activity done for income or pay; Z79.899 Other long term (current) drug therapy
CPT/HCPCS: 70110; 70450; 72040; 73030; 73502; 99282; 99284

== ENCOUNTER 2022-07-13 07:23 | Outpatient (REF) | payer OTHER, SELFPAY ==
--- NOTE | ~2022-07-13 | MR_ITS ---
EXAMINATION: MR HIP WITHOUT CONTRAST, RIGHT CLINICAL INFORMATION: Right hip pain. Groin pain with poor weight bearing. COMPARISON: Radiographs dated 06/22/2022. TECHNIQUE: MRI of the right hip was obtained using routine sequences on a high-field strength magnet. FINDINGS: LABRUM/CAPSULE: The acetabular labrum is diminutive with fraying and loss of labral tissue superolaterally, most consistent with labral degeneration. No separate, discretely marginated tears are identified. BONES AND ARTICULAR CARTILAGE: Subchondral marrow edema signal is evident at the anterior acetabulum at the junction of the pubis and iliac bones, anterior to the quadrilateral plate. An osseous contusion is most likely. No fracture lines are identified in this region. A stress reaction is less likely. No appreciable osseous lesions. There are small acetabular osteophytes. Mild nonuniform chondral thinning is present at the femoral head superiorly and at the acetabular roof. Intense focal edema signal is present in the left parasymphyseal pubic bone with an associated sagittally-oriented band of low signal intensity, possibly corresponding to an occult incomplete fracture line. There is a sagittally-oriented fracture through the right sacral ala (Julio Cesar zone 1) with intense surrounding marrow edema signal throughout the right sacral ala. No additional sacral fractures are identified on these images. Degenerative spondylosis is evident in the lower lumbar spine. MUSCLES AND TENDONS: Mild gluteus minimus and gluteus medius tendinosis. No tears or muscle atrophy. JOINT FLUID AND BURSAE: No joint effusion. No bursitis. LIGAMENTUM TERES: Intact. INTRAPELVIC SOFT TISSUES: No acute intrapelvic soft tissue abnormalities are identified. MR/MR hip RT wo con IMPRESSION: 1. Nondisplaced fracture of the right sacral ala (Julio Cesar zone 1). 2. Probable incomplete fracture of the left parasymphyseal pubic bone. 3. Probable osseous contusion at the anterior wall of the acetabulum. 4. Mild osteoarthritis in the right hip with degenerative fraying of the acetabular labrum. 5. Mild gluteus minimus and gluteus medius tendinosis. No tears.
== END 2022-07-13 07:24 | disposition home or self-care (01) ==
LOC: HO.MRI 07:23
PROVIDERS: Visit Provider Emergency Medicine
DX: S79.911A Unspecified injury of right hip, initial encounter (principal)
CPT/HCPCS: 73721

== ENCOUNTER 2023-03-29 02:26 | Day surgery (SDC) | payer MEDICAID, SELFPAY ==
[2023-03-29] VITALS (13 sets, daily range): BP systolic 95–181; BP diastolic 36–90; PULSE 85–108; RESP 10–18; TEMP 36.3–36.7; O2SAT 94–100; BMI 19.1
[2023-03-29 03:14] LABS: MANUAL DIFF FLAG NO
[2023-03-29 03:15] LABS: Basophils Percent Auto 0.2 % (0-2); Eosinophils Absolute Auto 0.1 X10*3/uL (0.0-0.4); Eosinophils Percent Auto 1.1 % (0-4); Hematocrit 38.4 % (37.0-47.0); Hemoglobin 12.9 g/dl (12.0-16.0); Imm Gran Abs Auto 0.01 X10*3/uL (0.00-0.03); Imm Gran Pct Auto 0.2 % (0.0-0.4); Lymphocytes Absolute Auto 1.3 X10*3/uL (1.2-4.9); Lymphocytes Percent Auto 22.4 % (20-40); Mean Corpuscular HGB Conc 33.6 g/dl (31.0-35.0); Mean Corpuscular Hemoglobin 30.7 pg (27.0-33.0); Mean Corpuscular Volume 91.4 fL (80.0-98.0); Mean Platelet Volume 9.2 fL (9.4-12.3); Monocytes Absolute Auto 0.3 X10*3/uL (0.1-1.2); Monocytes Percent Auto 5.8 % (2-11); Neutrophils Percent Auto 70.3 % (45-73); Platelet Count 253 X10*3/uL (160-400); Red Cell Distribution Width 12.5 % (11.0-16.0); White Blood Count 5.7 X10*3/uL (4.8-10.8)
[2023-03-29 03:31] LABS: Alanine Aminotransferase 18 U/L (0-31); Albumin Level 4.4 g/dL (3.5-5.0); Alkaline Phosphatase 81 U/L (39-117); Anion Gap 15 (12-20); Aspartate Amino Transferase 25 U/L (5-31); Bilirubin Total 0.3 mg/dL (0.0-1.0); Blood Urea Nitrogen 9 mg/dL (9-16); Calcium 9.3 mg/dL (8.4-10.2); Carbon Dioxide 26 mmol/L (22-29); Chloride 106 mmol/L (96-108); Estimated Glomerular Filt Rate > 60; Glucose Random 112 mg/dL (60-115); Potassium 4.1 mmol/L (3.3-5.1); Sodium 143 mmol/L (135-145)
--- NOTE | 2023-03-29 03:38 | ED.FEMALEGU ---
HPI - Female Genitourinary General Chief complaint: Vaginal Bleeding Stated complaint: Vaginal bleed Time Seen by Provider: 03/29/23 03:01 Source: patient Mode of arrival: ambulatory History of Present Illness HPI Narrative: 52-year-old female who states that she has sexual intercourse for the 1st time this evening since the passing of her and then developed significant vaginal bleeding thereafter. She denies any unusual sexual intercourse and denies that the male participant had any piercings. Related Data Home Medications Medication Instructions Recorded Confirmed atorvastatin 20 mg tablet 20 mg PO BEDTIME 04/27/21 10/09/21 methadone 90 mg PO DAILY 10/09/21 10/09/21 polyethylene glycol 3350 17 gram 17 g PO DAILY 10/09/21 10/09/21 oral powder packet (Miralax) tizanidine 2 mg PO TID PRN Muscle Pain 10/09/21 10/09/21 Previous Rx's Medication Instructions Recorded bisacodyl 10 mg rectal suppository 10 mg RI DAILY PRN constipation 04/27/21 (Dulcolax (bisacodyl)) #20 ea docusate sodium 100 mg capsule 200 mg PO BEDTIME #60 caps 04/27/21 (Colace) acetaminophen 500 mg tablet 500 mg PO Q6H PRN pain or fever 08/26/21 (Tylenol Extra Strength) #20 tabs lidocaine 5 % topical patch 1 patch topical DAILY PRN pain #30 08/26/21 (Lidoderm) ea naproxen 500 mg tablet 500 mg PO BID PRN pain 10 days #20 08/26/21 tabs Allergies Allergy/AdvReac Type Severity Reaction Status Date / Time penicillin V Allergy Intermediate Swelling Verified 03/19/22 11:16 Penicillins [PENICILLINS] Allergy Intermediate SWELLING Verified 03/19/22 11:16 Sulfa (Sulfonamide Allergy Intermediate SWELLING Verified 03/19/22 11:16 Antibiotics) [SULFA (SULFONAMIDE ANTIBIOTICS)] Review of Systems Review of Systems: Pertinent positives and negatives as stated in HPI PMFSH Past Medical History Source: nursing notes reviewed Medical History Abdominal bloating with cramps Chronic constipation High cholesterol Migraine Surgical History Hx of colonoscopy Social History Social History Household Members Other:: Single Alcohol intake: current Patient Tobacco Use Status: Current everyday Tobacco user Advance Directives: No Advance Directives Information Provided: Yes Current occupational status: employed 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 GENERAL: Well developed, well nourished, in no acute distress. HEAD: Normocephalic/atraumatic EYES: PERRLA, EOMI EARS: Ext canals without abnormality NOSE: Nares patent bilateral OROPHARYNX: no oral lesions noted, posterior pharynx clear NECK: Supple, no adenopathy LUNGS: Normal breath sounds. No adventitious sounds or accessory muscle use. SpO2<100> CARDIOVASCULAR: Regular rate and rhythm without noted murmurs ABDOMEN: Soft, non-tender, non-distended with bowel sounds. PELVIC: On pelvic exam vaginal vault is full of clots which were extracted with ring forceps, there was copious amount of bleeding with in the posterior fornix which was suctioned out, total blood suctioned approximately 150 cc, bleeding does not appear to be coming from the cervical os, and instead as suspect laceration at the left vaginal wall. Two 4x4s were packed within the vaginal vault while gynecology was contacted. MUSCULOSKELETAL: No tenderness, deformities, or effusions noted on gross inspection. EXTREMITIES: No cyanosis, clubbing or edema. SKIN: Inspection of the skin reveals no rashes NEUROLOGIC: Alert and oriented x 4. Strength and sensation to light touch were grossly intact x 4. Medical Decision Making Medical Decision Making MDM Narrative: 52-year-old female with history and clinical presentation most consistent with vaginal wall laceration, pelvic exam was conducted in suspected laceration to the left vaginal wall. - labs, type and screen 0336: I contacted Dr. Quinn, and he will come in to evaluate the patient at bedside. I reviewed all investigations and hematologic indices grossly within normal limits without evidence of acute anemia or leukocytosis. Chemistries are grossly within normal limits. Patient is typed and screened and noted to be a positive 0429: Dr. Quinn will need to take the patient to the OR Differential Diagnosis Differential Diagnoses: The differential diagnosis associated with the presentation includes Vaginal wall laceration, vaginal wall mass Admission/Observation Consideration of admission/observation: Escalation of care including admission/observation considered Consult Healthcare Provider Management of the patient was discussed with: Operational Risk Analyst Please see the discussion above Lab Data MDM Lab Attestation statement: I reviewed the patient's lab results. Please see the discussion above 03/29/23 03:09 03/29/23 03:09 Labs: Lab Results 03/29/23 03/29/23 03/29/23 Range/Units 03:09 03:09 03:09 WBC 5.7 (4.8-10.8) X10*3/uL RBC 4.20 (4.20-5.50) X10*6/uL Hgb 12.9 (12.0-16.0) g/dl Hct 38.4 (37.0-47.0) % MCV 91.4 (80.0-98.0) fL MCH 30.7 (27.0-33.0) pg MCHC 33.6 (31.0-35.0) g/dl RDW 12.5 (11.0-16.0) % Plt Count 253 (160-400) X10*3/uL MPV 9.2 L (9.4-12.3) fL Immature Gran % (Auto) 0.2 (0.0-0.4) % Neut % (Auto) 70.3 (45-73) % Lymph % (Auto) 22.4 (20-40) % Forrest % (Auto) 5.8 (2-11) % Eos % (Auto) 1.1 (0-4) % Baso % (Auto) 0.2 (0-2) % Lymph # (Auto) 1.3 (1.2-4.9) X10*3/uL Forrest # (Auto) 0.3 (0.1-1.2) X10*3/uL Eos # (Auto) 0.1 (0.0-0.4) X10*3/uL Baso # (Auto) 0.0 (0.0-0.2) X10*3/uL Abs Immat Gran (auto) 0.01 (0.00-0.03) X10*3/uL Absolute Neuts (auto) 4.0 (2.0-8.3) x10*3/uL Absolute Nucleated RBC 0.000 (0.0-0.012) X10*3/uL Nucleated RBC % (auto) 0.0 (0.0-0.2) /100WBC Sodium 143 (135-145) mmol/L Potassium 4.1 (3.3-5.1) mmol/L Chloride 106 (96-108) mmol/L Carbon Dioxide 26 (22-29) mmol/L Anion Gap 15 (12-20) BUN 9 (9-16) mg/dL Creatinine 0.69 (0.5-1.4) mg/dL Estim Creat Clear Calc 72.0 Estimated GFR > 60 Random Glucose 112 (60-115) mg/dL Calcium 9.3 (8.4-10.2) mg/dL Total Bilirubin 0.3 (0.0-1.0) mg/dL AST 25 (5-31) U/L ALT 18 (0-31) U/L Alkaline Phosphatase 81 (39-117) U/L Total Protein 7.0 (6.5-8.0) g/dL Albumin 4.4 (3.5-5.0) g/dL Blood Type A Positive Antibody Screen NEGATIVE External Record Review External record reviewed: Outpatient record and Prior outpatient labs Critical Care Time Critical Care Time Critical Care Time: Yes Total Critical Care Time: 30 Attestation: I personally attest to this time spent taking care of the patient. Discharge Plan Discharge Clinical Impression: Vaginal hemorrhage Patient Disposition: Admitted As Inpatient Prescriptions: No Action polyethylene glycol 3350 [Miralax] 17 gram Powder In Packet 17 g PO DAILY methadone 90 mg PO DAILY tizanidine tablet 2 mg PO TID PRN (Reason: Muscle Pain) acetaminophen [Tylenol Extra Strength] 500 mg tablet 500 mg PO Q6H PRN (Reason: pain or fever) Qty: 20 0RF lidocaine [Lidoderm] 5 % adhesive patch,medicated 1 patch topical DAILY MDD remove after 12 hours PRN (Reason: pain) Qty: 30 0RF Rx Instructions: leave on most painful area for up to 12 hrs naproxen 500 mg tablet 500 mg PO BID PRN (Reason: pain) 10 Days Qty: 20 0RF atorvastatin 20 mg tablet 20 mg PO BEDTIME docusate sodium [Colace] 100 mg capsule 200 mg PO BEDTIME Qty: 60 5RF bisacodyl [Dulcolax (bisacodyl)] 10 mg suppository 10 mg RI DAILY PRN (Reason: constipation) Qty: 20 0RF
--- NOTE | 2023-03-29 04:00 | PC.NURSE ---
this rn assumed care of pt @ 0300 from triage. pt placed on monitoring and evaluation advisor. pt friend at bedside. pt anxious at this time. this rn and additional rn attempted placement of iv. iv placed 20g R FA. dr mcfadden made aware of pt status. this rn, additional rn. federal air marshal at bedside for pelvic exam. pt soaked through 3 towels 2 sanitary pads 3 blue mini pads 8 gauze 4x4. 7 clots removed during pelvic exam with dr mcfadden 200ml blood suctioned
--- NOTE | 2023-03-29 04:30 | PM.GYNCN ---
[employer] - CN: HPI Data of Consult Consult date: 03/29/23 Primary Care Provider: Gabriel Mcleod MD Consult Narrative Narrative: I was consulted on Carole Cao who is a 52 year old female who presented emergency room with profuse vaginal bleeding that started after sexual intercourse for the 1st time this evening since the passing of her .? She denies any unusual sexual intercourse and denies that the male participant had any piercings. 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 Meds Allergies Allergy/AdvReac Type Severity Reaction Status Date / Time penicillin V Allergy Intermediate Swelling Verified 03/19/22 11:16 Penicillins [PENICILLINS] Allergy Intermediate SWELLING Verified 03/19/22 11:16 Sulfa (Sulfonamide Allergy Intermediate SWELLING Verified 03/19/22 11:16 Antibiotics) [SULFA (SULFONAMIDE ANTIBIOTICS)] Home Medications Medication Instructions Recorded Confirmed Last Taken Type atorvastatin 20 mg tablet 20 mg PO BEDTIME 04/27/21 10/09/21 Unknown History methadone 90 mg PO DAILY 10/09/21 10/09/21 Unknown History polyethylene glycol 3350 17 gram 17 g PO DAILY 10/09/21 10/09/21 Unknown History oral powder packet (Miralax) tizanidine 2 mg PO TID PRN Muscle Pain 10/09/21 10/09/21 Unknown History [employer] Physical Exam Vitals Vital signs: Temp Pulse Resp BP Pulse Ox O2 Del Method 98.1 F 85 12 110/65 98 Room Air 03/29/23 04:28 03/29/23 04:28 03/29/23 04:28 03/29/23 04:28 03/29/23 04:28 03/29/23 04:28 BMI result Body Mass Index 19.1 Female Genitalia (Pelvic) Cervix: Grossly normal Uterus: Normal size Adnexa/Parametria: Adnexal Tenderness: None and Adnexal Mass: None Additional Comments: Left 4 cm vaginal wall laceration bleeding [employer] - Results Labs 03/29/23 03:09 03/29/23 03:09 Labs: Short CBC 03/29/23 Range/Units 03:09 WBC 5.7 (4.8-10.8) X10*3/uL Hgb 12.9 (12.0-16.0) g/dl Hct 38.4 (37.0-47.0) % Plt Count 253 (160-400) X10*3/uL BMP 03/29/23 03:09 Sodium 143 Potassium 4.1 Chloride 106 Carbon Dioxide 26 BUN 9 Creatinine 0.69 Calcium 9.3 Liver Function 03/29/23 Range/Units 03:09 Total Bilirubin 0.3 (0.0-1.0) mg/dL AST 25 (5-31) U/L ALT 18 (0-31) U/L Alkaline Phosphatase 81 (39-117) U/L Albumin 4.4 (3.5-5.0) g/dL Antibody Screen Antibody Screen NEGATIVE 03/29/23 03:09 Assessment and Plan (1) Vaginal laceration: Status: Acute The patient was given these of lidocaine and attempted to suture the last vaginal was laceration the patient could not tolerate the pain. Will call Anesthesia and operating room team and proceed with vaginal wall repair under anaesthesia. Type and screen 1 unit, IV hydration. Clindamycin 900 mg IV with gentamicin 5 milligrams/kg preoperative prophylactic doses since the patient is penicillin allergic. Discussed with the patient the procedure, possible risks including but not limited to bleeding, infection, risk of injury to the bladder, bowel ureter, blood vessels, possible need for blood transfusion with all its risks, possible chronic painful intercourse and others. All questions answered, the patient verbalized understanding and signed the consent. Time Spent With Patient Time: Total time managing care of this patient today ____ minutes.
[2023-03-29] MEDS: fentaNYL citrate/PF 100 MCG/2 ML VIAL 25 MCG IVPUSH (05:04)
[2023-03-29] MEDS: 0.9 % Sodium Chloride 1,000 ML 999 ML IV (05:07)
--- NOTE | 2023-03-29 06:13 | P.BOP_ITS ---
Brief Operative Note Date of Service: 03/29/23 Pre-op diagnosis: left 4 cm bleeding vaginal wall laceration Post-op diagnosis: same Procedure: repair of left vaginal wall laceration Surgeon: Santo Quinn MD Anesthesia: GLMA Was an Capper Machine Operator used for this Procedure?: No Estimated blood loss (mL): 30 Pathology: none sent Condition: stable Disposition: PACU
--- NOTE | 2023-03-29 06:14 | W.PM.OPN ---
Operative Note Operative Note Date of Service: 03/29/23 Narrative: Preop diagnosis: Left bleeding 4 cm vaginal laceration Operation: Repair of left vaginal wall laceration Postop diagnosis: The same EBL: Minimal Anesthesia: GLMA Central Supply Tech: None Pathology: none Procedure: The patient was put in a dorsal distal mid position was scrubbed and draped in the usual sterile fashion. A sterile speculum was inserted inside the patient's vagina. Inspection revealed a bleeding 4 cm left vaginal wall laceration. Using 2-0 Vicryl the laceration was repaired in a running interlocking fashion. At the and hemostasis was assured. The patient tolerated the procedure well and was transferred to the PACU in a stable condition.
--- NOTE | 2023-03-29 06:17 | PC.NURSE ---
dr wilks to bedside for pelvic exam attempted to suture vaginal laceration. 5 unused, opened lap pads. dr wilks unable to suture at this time. pt to be transferred to OR
--- NOTE | 2023-03-29 06:20 | PC.NURSE ---
multiple IV lines blown. full charge bookkeeper attempted twice. aware 20g iv removed from R FA. 18g iv removed from left AC after infiltration- placed by dr mcfadden US guided 20g iv placed in R AC US guided by dr mcfadden- pt medicated according to mar
--- NOTE | 2023-03-29 06:23 | PC.NURSE ---
pt brought down to OR @ 0530 by this rn, additional rn, multi media specialist, and dr wilks. bedside rn to rn report given
--- NOTE | 2023-03-29 06:29 | HO.ANESPROP2 ---
[facility] Active Problems Active Problems: All Active Problems (Updated 03/29/23 @ 04:33 by Santo Quinn MD) Vaginal laceration (Acute) Osteoarthritis of right knee (Acute) Swelling, mass, or lump in head and neck (Chronic) Abdominal bloating with cramps (Acute) Chronic constipation (Acute) Past Medical History Medical History Abdominal bloating with cramps Chronic constipation High cholesterol Migraine Surgical History Surgical History Hx of colonoscopy Social History Social History Household Members Other:: Single Alcohol intake: current Patient Tobacco Use Status: Current everyday Tobacco user Use of substances other than those prescribed or required for medical reasons: No Advance Directives: No Advance Directives Information Provided: Yes Current occupational status: employed 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 Meds Allergies Allergy/AdvReac Type Severity Reaction Status Date / Time penicillin V Allergy Intermediate Swelling Verified 03/19/22 11:16 Penicillins [PENICILLINS] Allergy Intermediate SWELLING Verified 03/19/22 11:16 Sulfa (Sulfonamide Allergy Intermediate SWELLING Verified 03/19/22 11:16 Antibiotics) [SULFA (SULFONAMIDE ANTIBIOTICS)] Home Medications Medication Instructions Recorded Confirmed Last Taken Type atorvastatin 20 mg tablet 20 mg PO BEDTIME 04/27/21 10/09/21 Unknown History methadone 90 mg PO DAILY 10/09/21 10/09/21 Unknown History polyethylene glycol 3350 17 gram 17 g PO DAILY 10/09/21 10/09/21 Unknown History oral powder packet (Miralax) tizanidine 2 mg PO TID PRN Muscle Pain 10/09/21 10/09/21 Unknown History Exam Exam Date and Time: March 29, 2023 0629 Height,Weight and Vital Signs: Height 5 ft 3 in Weight 48.94 kg Last Vital Signs Temp 98.1 F 03/29/23 04:28 Pulse 85 03/29/23 05:04 Resp 11 L 03/29/23 05:04 BP 147/66 H 03/29/23 05:04 Pulse Ox 98 03/29/23 04:28 O2 Del Method Room Air 03/29/23 04:28 Pertinent Lab Results Pertinent Lab Results: Laboratory Tests 03/29/23 03/29/23 03/29/23 03:09 03:09 03:09 WBC 5.7 RBC 4.20 Hgb 12.9 Hct 38.4 MCV 91.4 MCH 30.7 MCHC 33.6 RDW 12.5 Plt Count 253 MPV 9.2 L Immature Gran % (Auto) 0.2 Neut % (Auto) 70.3 Lymph % (Auto) 22.4 [place] % (Auto) 5.8 Eos % (Auto) 1.1 Baso % (Auto) 0.2 Lymph # (Auto) 1.3 [place] # (Auto) 0.3 Eos # (Auto) 0.1 Baso # (Auto) 0.0 Abs Immat Gran (auto) 0.01 Absolute Neuts (auto) 4.0 Absolute Nucleated RBC 0.000 Nucleated RBC % (auto) 0.0 Sodium 143 Potassium 4.1 Chloride 106 Carbon Dioxide 26 Anion Gap 15 BUN 9 Creatinine 0.69 Estim Creat Clear Calc 72.0 Estimated GFR > 60 Random Glucose 112 Calcium 9.3 Total Bilirubin 0.3 AST 25 ALT 18 Alkaline Phosphatase 81 Total Protein 7.0 Albumin 4.4 Blood Type A Positive Antibody Screen NEGATIVE Crossmatch See Detail Airway Mallampati Class: II TM Dist: >3cm Neck ROM: Full Loose/Missing/Broken Teeth: Yes and Upper Heart: RRR Lungs: CTA Assessment and Plan Final Anesthetic Review ASA Class: II and Emergency Final Preanesthetic Review: Meds/Allgs Chart Reviewed, Consent Obtained/Reviewed and Anes Risks/Benef Reviewed Patient Risk: Low Procedure Risk: Intermediate Anesthetic Plan Anesthetic Plan: GA Disposition: Standard PACU
--- NOTE | 2023-03-29 06:42 | HO.POSTANES ---
Post Anesthesia Evaluation Post Anesthesia Evaluation Date of Service: 03/29/23 Vital Signs: Vital Signs Temp Pulse Resp BP Pulse Ox O2 Del Method 03/29/23 04:08 87 10 L 146/80 H 94 Room Air 03/29/23 03:58 99 10 L 141/85 H 03/29/23 03:38 94 16 181/90 H 96 Room Air 03/29/23 05:04 85 147/66 H 03/29/23 04:51 102 H 146/83 H 03/29/23 04:46 97 158/80 H 03/29/23 05:04 11 L 03/29/23 04:28 98.1 F 85 12 110/65 98 Room Air 03/29/23 02:31 97.8 F 108 H 18 137/86 100 Anesthesia: General LMA Mental Status: Awake Pain Control: Satisfactory Nausea/Vomiting: None Hydration: Adequate Anesthesia-Related Issues: No Anes. Related Issues
== END 2023-03-29 07:55 | disposition home or self-care (01) ==
LOC: HO.ED 06:28 → HO.SSS 06:55
PROVIDERS: Emergency Provider Student in an Organized Health Care Education/Training Program; PCP Internal Medicine; Visit Provider Obstetrics & Gynecology
PROC: (CPT 57200; principal; 2023-03-29 05:30)
DX: S31.41XA Laceration without foreign body of vagina and vulva, initial encounter (principal); X58.XXXA Exposure to other specified factors, initial encounter; Y93.89 Activity, other specified; Y92.9 Unspecified place or not applicable; Y99.9 Unspecified external cause status; Z88.0 Allergy status to penicillin; Z88.2 Allergy status to sulfonamides
CPT/HCPCS: 57200; 36415; 80053; 85025; 86850; 86900; 86901; 86923; 99285; J1100; J1580; J2250; J2405; J3010

== ENCOUNTER → 2023-03-29 03:02 | Outpatient (BNV) | payer MEDICAID, SELFPAY | PROVIDERS: Emergency Provider Student in an Organized Health Care Education/Training Program; PCP Internal Medicine; Visit Provider Obstetrics & Gynecology | DX: S31.41XA Laceration without foreign body of vagina and vulva, initial encounter (principal) | CPT/HCPCS: 57200; 99283 ==

== ENCOUNTER 2023-04-20 08:57 | Outpatient (REF) | payer MEDICAID, SELFPAY ==
--- NOTE | ~2023-04-20 | MM_ITS ---
EXAMINATION: BONE DENSITOMETRY CLINICAL INDICATION: Screening. COMPARISON: This is the patient's baseline examination. TECHNIQUE: Using a [employer] Solar DXA System (software version: 13.1) manufactured by [employer], dual-energy x-ray absorptiometry was performed of the lumbar spine and left hip. The images are of good technical quality. Summary results are attached. FINDINGS: LEFT FEMUR, NECK: BMD 0.750 g/cm2, Z-score -0.7, T-score -2.1, osteopenia. LEFT FEMUR, TOTAL: BMD 0.826 g/cm2, Z-score -0.4, T-score -1.4, osteopenia. AP SPINE L1-L4: BMD 0.734 g/cm2, Z-score -2.4, T-score -3.7, osteoporosis. IDENTIFIED RISK FACTORS: Menopause, history of fracture (adult), low body weight, low calcium intake, tobacco use (current smoker). HISTORY OF FRACTURE: Pelvis. MEDICATIONS: None listed. MM/XR DEXA axial skeleton IMPRESSION: 1. DIAGNOSIS: Severe osteoporosis based on the lowest T-score value of -3.7 in the lumbar spine and history of fracture of pelvis applying World Health Organization criteria. 2. 10-YEAR FRACTURE RISK PREDICTION, FRAX: According to the guidelines, FRAX calculation should only be performed on patients in the osteopenia bone density category. Therefore, FRAX was not performed on this patient. 3. Treatment Recommendations: NOF guidelines recommend consideration for treatment in postmenopausal women and men age 50 and older presenting with the following: -A hip or vertebral (clinical or morphometric) fracture. -T-score less than or equal to -2.5 at the femoral neck or spine after appropriate evaluation to exclude secondary causes. -Low bone mass at the hip or spine and a 10-year fracture probability by FRAX of greater than or equal to 3% for hip fracture or greater than or equal to 20% for major osteoporotic fracture based on the [place] adapted WHO algorithm. 4. Other Recommendations: All treatment decisions require clinical judgment and consideration of individual patient factors, including patient preferences, comorbidities, previous drug use, risk factors not captured in the FRAX model (e.g. frailty, falls, vitamin D deficiency, increased bone turnover, interval significant decline in bone density) and possible under or overestimation of fracture risk by FRAX. Additional medical evaluation for secondary cause of low bone mineral density may be appropriate. FUTURE SCAN RECOMMENDATION: People with diagnosed cases of osteoporosis or at high risk for fracture should have regular bone mineral density tests. For patients eligible for Medicare, routine testing is allowed once every 2 years. The testing frequency can be increased to one year for patients who have rapidly progressing disease, those who are receiving or discontinuing medical therapy to restore bone mass, or have additional risk factors.
== END 2023-04-20 08:58 | disposition home or self-care (01) ==
LOC: HO.MAMMO 08:57
PROVIDERS: PCP Internal Medicine; Visit Provider Pediatrics
DX: Z13.820 Encounter for screening for osteoporosis (principal); Z78.0 Asymptomatic menopausal state; M81.0 Age-related osteoporosis without current pathological fracture; M85.852 Other specified disorders of bone density and structure, left thigh; E58 Dietary calcium deficiency; R63.6 Underweight; S31.41XA Laceration without foreign body of vagina and vulva, initial encounter; N76.0 Acute vaginitis; B96.89 Other specified bacterial agents as the cause of diseases classified elsewhere; Z72.0 Tobacco use; Z87.81 Personal history of (healed) traumatic fracture
CPT/HCPCS: 77080; 99212

== ENCOUNTER → 2023-04-20 09:15 | Outpatient (BNV) | payer MEDICAID, SELFPAY | PROVIDERS: PCP Internal Medicine; Visit Provider Radiology Diagnostic Radiology | DX: Z78.0 Asymptomatic menopausal state (principal) | CPT/HCPCS: 77080 ==

== ENCOUNTER 2023-04-20 09:41 | Outpatient (AMB) | payer MEDICAID, SELFPAY ==
--- NOTE | 2023-04-20 09:43 | A.OFFVIS_ITS ---
Intake Vital Signs 04/20/23 09:45 Height 5 ft 3 in Weight 117 lb BMI 20.7 BP 120/70 Intake Visit Reasons: post op Business Intelligence Engineer Required: No Information Interpreted: non-clinical & clinical Accompanied by: Self / Same As Patient Allergies penicillin V Allergy (Intermediate, Verified 04/20/23 09:45) Swelling Penicillins [PENICILLINS] Allergy (Intermediate, Verified 04/20/23 09:45) SWELLING Sulfa (Sulfonamide Antibiotics) [SULFA (SULFONAMIDE ANTIBIOTICS)] Allergy (Intermediate, Verified 04/20/23 09:45) SWELLING Post menopausal: Yes HPI HPI Comments History of Present Illness Details Presenting for weeks post vaginal laceration repair with no complaints, no vaginal bleeding or pain or any other concerns. Complaining of vaginal discharge with odor. 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 Review of Systems Const All systems reviewed & are unremarkable except as noted in HPI and below Reports as per HPI and Reports no additional complaints GI Reports no additional complaints Reports no additional complaints Physical Exam Other: Patient declined Assessment & Plan Assessment & Plan (1) Vaginal laceration: Comment: Four weeks post repair Code(s): S31.41XA - Laceration without foreign body of vagina and vulva, initial encounter Plan: Discussed with the patient the intraoperative findings, instructions given the patient to schedule annual exam within few weeks, to call in case of vaginal bleeding pain fever above 100.4. Encouraged the patient to start using vaginal dilating in 2 week with KY jelly, mammogram is scheduled once negative will introduce vaginal estrogen cream Pap with vaginal health . All questions answered, the patient verbalized understanding (2) Bacterial vaginosis: Code(s): N76.0 - Acute vaginitis; B96.89 - Other specified bacterial agents as the cause of diseases classified elsewhere Plan: Will treat with Flagyl 500 mg p.o. b.i.d. for 7 days, instructions given the patient to call in case symptoms persist and do not improve Medications: New metronidazole 500 mg PO BID 14 tabs 0RF 7 days Coding Level of Care Code Est Pt Level 3 (79428) Diagnoses Vaginal laceration S31.41XA Bacterial vaginosis N76.0; B96.89
[2023-04-20 09:45] VITALS: BP 120/70; BMI 20.7
== END 2023-04-20 10:53 | disposition home or self-care (01) ==
LOC: HO.HWS 09:41
PROVIDERS: PCP Internal Medicine; Visit Provider Obstetrics & Gynecology
DX: S31.41XA Laceration without foreign body of vagina and vulva, initial encounter (principal); N76.0 Acute vaginitis; B96.89 Other specified bacterial agents as the cause of diseases classified elsewhere
CPT/HCPCS: 99213

== ENCOUNTER → 2023-04-22 11:30 | Outpatient (BNV) | payer MEDICAID, SELFPAY | PROVIDERS: PCP Internal Medicine; Visit Provider Radiology Diagnostic Radiology | DX: Z12.31 Encounter for screening mammogram for malignant neoplasm of breast (principal) | CPT/HCPCS: 77063; 77067 ==

== ENCOUNTER 2023-04-22 11:41 | Outpatient (REF) | payer MEDICAID, SELFPAY ==
--- NOTE | ~2023-04-22 | MM_ITS ---
EXAMINATION: MM SCREENING DIGITAL BREAST TOMOSYNTHESIS, BILATERAL CLINICAL INFORMATION: Screening. Asymptomatic. The lifetime risk of breast cancer based on the Tyrer-Cuzick Model is 21%. COMPARISON: Mammography: This study is compared to the only prior mammogram from 2011. TECHNIQUE: Digital breast tomosynthesis is performed in both the craniocaudal and mediolateral oblique views along with computer-aided detection (CAD). Synthesized 2D images are generated from the tomosynthesis. FINDINGS: The breasts are heterogeneously dense, which may obscure small masses (ACR BI-RADS breast composition Category c). There are no significant masses, abnormal calcifications, or other abnormalities. MM/MM tomosynthesis screening BI IMPRESSION: No mammographic evidence of malignancy. ASSESSMENT: BI-RADS BI-RADS 1 - Negative RECOMMENDATION: Routine annual mammography screening. Please note that the patient has an elevated Tyrer-Cuzick score of 21% for her lifetime risk of developing breast cancer. If an adjunct screening with breast MRI has not been undertaken, this should be considered. 1 year F/U This examination should not preclude the clinical evaluation of a suspicious palpable abnormality. This patient's information was entered into a reminder system with a target due date for their next mammogram.
== END 2023-04-22 11:42 | disposition home or self-care (01) ==
LOC: HO.MAMMO 11:41
PROVIDERS: PCP Internal Medicine; Visit Provider Internal Medicine
DX: Z12.31 Encounter for screening mammogram for malignant neoplasm of breast (principal)
CPT/HCPCS: 77063; 77067

== ENCOUNTER 2023-05-26 09:24 | Outpatient (REF) | payer MEDICAID, SELFPAY ==
[2023-05-27 03:17] LABS: CT PCR NOT DETECTED (Not Detect.); NG PCR NOT DETECTED (Not Detect.)
[2023-05-27 16:01] LABS: BV Int Neg Control Negative (Negative); BV Int Pos Control Positive (Positive)
[2023-06-01 05:28] LABS: HPV 16 RNA NOT DETECTED (NOT DETECTED); HPV mRNA E6/E7 rflx Detected (Not Detected)
== END 2023-05-26 09:25 | disposition home or self-care (01) ==
LOC: HO.LNP 09:24
PROVIDERS: PCP Internal Medicine; Visit Provider Obstetrics & Gynecology
DX: Z12.4 Encounter for screening for malignant neoplasm of cervix (principal); Z11.51 Encounter for screening for human papillomavirus (HPV); Z11.3 Encounter for screening for infections with a predominantly sexual mode of transmission; N39.0 Urinary tract infection, site not specified
CPT/HCPCS: 0353U; 87480; 87510; 87624; 87625; 87660; 88142; 99212

== ENCOUNTER 2023-05-26 09:24 | Outpatient (AMB) | payer MEDICAID, SELFPAY ==
--- NOTE | 2023-05-26 09:33 | MHC.OFFVIS ---
Intake Vital Signs 05/26/23 09:35 Height 5 ft 3 in Weight 116 lb 13.52 oz BMI 20.7 BP 116/66 Intake Visit Reasons: Bleeding after IC Digital Business Analyst Required: No Information Interpreted: non-clinical & clinical Backpackers Manager: Backpackers Manager Present (Lisbeth QUISPE) Accompanied by: Self / Same As Patient Allergies penicillin V Allergy (Intermediate, Verified 05/26/23 09:36) Swelling Penicillins [PENICILLINS] Allergy (Intermediate, Verified 05/26/23 09:36) SWELLING Sulfa (Sulfonamide Antibiotics) [SULFA (SULFONAMIDE ANTIBIOTICS)] Allergy (Intermediate, Verified 05/26/23 09:36) SWELLING Post menopausal: Yes HPI HPI Comments History of Present Illness Details Presenting complaining of vaginal bleeding after intercourse lasting for few days. The patient had a major vaginal laceration after initial intercourse on 03/30/2023 which required vaginal laceration repair under anesthesia. In addition, the patient is requesting STD screen. Last Pap smear was many years ago. 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 Will order pelvic ultrasound to rule out endometrial pathology as a cause of postcoital bleeding. Discussed with the patient different causes of postcoital bleeding including vaginal, cervical and uterine/endometrial. Instructions given the patient to schedule a 2 week ultrasound follow-up appointment /possible EMB. All questions answered, the patient verbalized understanding (2) Screen for STD (sexually transmitted disease): Code(s): Z11.3 - Encounter for screening for infections with a predominantly sexual mode of transmission Plan: STD screening tests done includes: BV panel for trichomonas, GC/CT will send patient for serology std screening for HIV, RPR, Hep b s Ag, HepC Ab. Instructions given the patient to schedule a follow-up appointment for repeat serology screen in 6 months for possible false negatives. Orders: Orders CT NG by PCR Today N93.0 - Postcoital and contact bleeding Hepatitis C Antibody Today Z20.2 - Contact with and (suspected) exposure to infections with a predominantly sexual mode of transmission Hepatitis B Surface Antigen Today Z20.2 - Contact with and (suspected) exposure to infections with a predominantly sexual mode of transmission Pap Smear Today N93.0 - Postcoital and contact bleeding Bacterial Vaginosis Panel Today N93.0 - Postcoital and contact bleeding US pelvic and transvaginal Today N93.0 - Postcoital and contact bleeding HIV Ab/Ag Today Z20.2 - Contact with and (suspected) exposure to infections with a predominantly sexual mode of transmission Syphilis Screen Today Z20.2 - Contact with and (suspected) exposure to infections with a predominantly sexual mode of transmission Coding Level of Care Code Est Pt Level 3 (79410) Diagnoses Postcoital bleeding N93.0 Screen for STD (sexually transmitted disease) Z11.3
[2023-05-26 09:35] VITALS: BP 116/66; BMI 20.7
== END 2023-05-26 09:52 | disposition home or self-care (01) ==
PROVIDERS: PCP Internal Medicine; Visit Provider Obstetrics & Gynecology
DX: N93.0 Postcoital and contact bleeding (principal); Z11.3 Encounter for screening for infections with a predominantly sexual mode of transmission
CPT/HCPCS: 99024

== ENCOUNTER 2023-05-30 13:13 | Outpatient (REF) | payer MEDICAID, SELFPAY ==
--- NOTE | ~2023-05-30 | US_ITS ---
EXAMINATION: US PELVIS CLINICAL INFORMATION: Postcoital bleeding. COMPARISON: Pelvic ultrasound 02/03/2021. TECHNIQUE: Ultrasound of the pelvis is performed using both transabdominal and transvaginal transducers along with Doppler. Transvaginal imaging is performed due to inadequate visualization transabdominally. FINDINGS: Uterus: The uterus is anteverted and measures 5.8 x 2.4 x 4.2 cm for a volume of 31 mL. 2 uterine fibroids are seen, one in the lower segment near the cervical junction measuring 2.3 x 1.6 x 2.2 cm (previously smaller at 2.3 x 1.0 x 1.1 cm). A smaller fibroid is present closer to the fundus measuring 1.2 cm. The double wall endometrial thickness is 3 mm. Adnexa: Neither ovary could be seen. No free fluid present. US/US pelvic and transvaginal IMPRESSION: Uterine fibroids as described above.
[2023-05-31 03:55] LABS: Syphilis Screen Nonreactive (Nonreactive)
[2023-05-31 04:33] LABS: HBsAGNum1 0.31 S/CO (0.00-0.99); HIV AB/AG Nonreactive (Nonreactive); HIV Num 1 0.05 S/CO (0.00-0.99); Hepatitis B Surface Antigen Negative (Negative); ~HepC Num1 0.07 S/CO (0.00-0.79); ~Hepatitis C Antibody Nonreactive (Nonreactive)
== END 2023-05-30 13:14 | disposition home or self-care (01) ==
LOC: HO.US 13:13
PROVIDERS: PCP Internal Medicine; Visit Provider Obstetrics & Gynecology
DX: N93.0 Postcoital and contact bleeding (principal); Z20.2 Contact with and (suspected) exposure to infections with a predominantly sexual mode of transmission
CPT/HCPCS: 36415; 76830; 76856; 86780; 86803; 87340; 87389

== ENCOUNTER 2023-06-02 17:23 | Outpatient (REF) | payer MEDICAID, SELFPAY | END 2023-06-02 17:24 | disposition home or self-care (01) | LOC: HO.HOSX 17:23 | PROVIDERS: Visit Provider Physician Assistant | DX: Z13.89 Encounter for screening for other disorder (principal) ==

== ENCOUNTER 2023-06-14 13:10 | Outpatient (AMB) | payer MEDICAID, SELFPAY ==
[2023-06-14 13:26] VITALS: BP 144/72; BMI 18.4
--- NOTE | 2023-06-14 13:26 | MHC.OFFVIS ---
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 Operator Required: No Information Interpreted: non-clinical & clinical Justice Court Judge: Justice Court Judge Present (Lisbeth) Allergies penicillin V Allergy (Intermediate, Verified 06/14/23 13:32) Swelling Penicillins [PENICILLINS] Allergy (Intermediate, Verified 06/14/23 13:32) SWELLING Sulfa (Sulfonamide Antibiotics) [SULFA (SULFONAMIDE ANTIBIOTICS)] Allergy (Intermediate, Verified 06/14/23 13:32) SWELLING Is last menstrual period known: No Post menopausal: Yes HPI HPI Comments History of Present Illness Details Presenting for follow-up regarding postcoital bleeding, annual exam and colposcopy for abnormal co testing done recently. GC/chlamydia an STD screen all came back negative. Last mammogram was BI-RADS 1 in 05/08 Co testing showed ascus/HPV positive Pelvic ultrasound compared to previous pelvic ultrasound done in 02/06 showed the following: Uterus: The uterus is anteverted and measures 5.8 x 2.4 x 4.2 cm for a volume of 31 mL. 2 uterine fibroids are seen, one in the lower segment near the cervical junction measuring 2.3 x 1.6 x 2.2 cm (previously smaller at 2.3 x 1.0 x 1.1 cm). A smaller fibroid is present closer to the fundus measuring 1.2 cm. The double wall endometrial thickness is 3 mm. Adnexa: Neither ovary could be seen. No free fluid present. 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 Female Reproductive History Menstrual Age of Menarche: 11 control method: none Total pregnancies: 3 Ab spontaneous: 3 Date of last pap smear: 05/27/23 (ASCUS +HPV) History of abnormal pap smear: Yes Review of Systems Const All systems reviewed & are unremarkable except as noted in HPI and below Card Reports as per HPI Resp Reports as per HPI GI Reports as per HPI and Reports no additional complaints Reports as per HPI Physical Exam Vital Signs: Last Vital Signs BP 144/72 H 06/14/23 13:26 BMI result Body Mass Index 18.4 Const General: cooperative, healthy appearing and comfortable Chest Chest palpation & inspection: normal inspection of the chest and normal palpation of entire chest wall Breast/axilla inspection: normal inspection of the breasts and normal inspection of the axillae Breast/axilla palpation: normal palpation of the breasts, normal palpation of the axillae and no axillary lymphadenopathy Resp Effort & Inspection: normal respiratory effort Auscultation: clear to auscultation bilaterally Percussion: percussion normal Cardio Palpation: normal PMI Rate: regular rate Rhythm: regular rhythm Heart sounds: no murmurs and no rubs Peripheral pulses: Peripheral pulses 2+ throughout GI Inspection: Yes normal to inspection Palpation (GI): Soft to palpation, nontender, no guarding, not rigid and No hepatosplenomegaly present Percussion: Yes normal to percussion Auscultation: normal bowel sounds Rectal Exam - Female: deferred General: Yes bladder normal to palpation External Female Exam: No lesion Speculum Exam - Vagina: normal appearance of the vagina, normal palpation, normal vaginal discharge and not erythematous Speculum Exam - Cervix: normal appearance of the cervix and normal palpation Bimanual exam- vagina & uterus: normal bimanual exam, normal palpation, uterine size normal, bladder normal to palpation, consistency normal and normal palpation Bimanual Exam- Adnexa, other: normal adnexae, no masses and no tenderness Office Procedures Colposcopy Before the procedure was started discussed with the patient the procedure, alternatives & all the risks associated with the procedure (bleeding, infection, injury to vagina, bladder, vessels, possible need for transfusion with all its risks) then patient signed the consent Pap smear = ascus/HPV positive Speculum inserted, acetic acid used Colposcopy done Transformation zone seen, acetowhite lesions identified at 6+9+12+3 o?clock, cervical biopsies taken from 6+9+12+3 o?clock, ECC done afterwards. Vaginoscopy of the upper vagina showed no evidence of any aceto-white lesions Monsel solution used for hemostasis. The patient tolerated well . At the end the patient was instructed to call if temp>100.4, abdominal pain, n/v, bleeding; The patient was given the following instructions: nothing per vagina, no intercourse or bath tub use. All questions answered the patient verbalized understanding. Instructed the patient to make an appointment in 2 weeks for follow-up This note was generated with a voice recognition program. Some errors may have been overlooked during the review of this note. Sometimes these errors may affect the content or meaning of a given sentence. 93259-[id number] of cervix including upper vagina with biopsy and ECC Procedure code (CPT) selection complete Endometrial Biopsy Details: The patient was counseled regarding the indication and benefits of endometrial sampling to rule out endometrial pathology including not limited to endometrial hyperplasia or endometrial cancer and others; The alternatives (Either do nothing vs. hysteroscopy D&C) & the risks were discussed with the patient including but not limited: pain, uterine perforation, bleeding, infection, possible injury to bladder, bowel, ureter, possible need for blood transfusion with all its possible risks. The patient verbalized understanding all questions answered and signed consent. The patient was placed into the dorsal lithotomy position; a speculum was inserted in the vagina. Using aseptic technique for the procedure, the cervix was cleansed with Betadine. The anterior lip of the cervix was grasped with a single tooth tenaculum. The uterus was sounded to 6 cm with a 4 mm Pipelle was used. Tissues samples were obtained and placed in formalin, in a patient labeled container and sent to the pathology department. At the end of the procedure, there was minimal bleeding noted The patient tolerated the procedure well and was discharged in good condition with the following instructions: Nothing in the vagina until the bleeding stops. No sex until the bleeding stops, to call if any of the following occurs: fever (>100.4), flu-like symptoms, abdominal pain, heavy bleeding, four smelling vaginal discharge. The patient was instructed to schedule a Follow up appointment in 2 weeks to discuss pathology results of the biopsy and treatment options. This note was generated with a voice recognition program. Some errors may have been overlooked during the review of this note. Sometimes these errors may affect the content or meaning of a given sentence. [id number]-[id number] Biopsy Assessment & Plan Assessment & Plan (1) Postcoital bleeding: Code(s): N93.0 - Postcoital and contact bleeding Plan: Discussed with the patient the results of the Pap smear showing ascus/HPV positive, recommended colposcopy come see procedure note. In addition discussed the patient the results the ultrasound showing myoma has increased in size over the last 2.5 years approximately, endometrial stripe was 3 mm. GC/chlamydia were negative. Discussed with the patient the ultrasound endometrial stripe thickness of 3 mm. Explained to the patient with an endometrial stripe of 4 mm &/or less, there is a high negative predictive value in detecting endometrial pathology including endometrial hyperplasia, polyps or malignancy. But since the postcoital bleeding is recurrent, recommended endometrial biopsy, EMB done see procedure note. All questions were answered and the patient verbalized understanding and agreed with the plan. (2) Uterine myoma: Code(s): D25.9 - Leiomyoma of uterus, unspecified Plan: Discussed with the patient the results of the ultrasound and the size of the myomas has increased in size. Discussed with the patient risk of myosarcoma and symptoms that are caused by myomas including but not limited to pelvic pain, pressure symptoms, abnormal uterine bleeding/postcoital bleed. In addition discussed with the patient options of treatment for myomas including: Serial ultrasounds periodically to follow-up on the size of the myoma versus surgical treatmentincluding hysterectomy . All pros and cons, risks and benefits of all options were discussed with the patient. The patient understands that delay in surgical treatment in case of myosarcoma can affect her prognosis, after further discussion, the patient decided to think about it and get back to us next visit (3) ASCUS with positive high risk HPV cervical: Code(s): R87.610 - Atypical squamous cells of undetermined significance on cytologic smear of cervix (ASC-US); R87.810 - Cervical high risk human papillomavirus (HPV) DNA test positive Plan: Discussed with the patient the result of her abnormal pap, with HPV positive, its significance, risk of progression, persistence, and regression if untreated. the false positive/negative rate being a screening test, the need for diagnostic test -colposcopy, biopsy, endocervical curettage. The patient verbalized understanding and agreed with the plan, all questions answered. Colposcopy done, see procedure note (4) Well woman exam: Code(s): Z01.419 - Encounter for gynecological examination (general) (routine) without abnormal findings Plan: Cotesting done 2 weeks ago Mammogram up-to-date. Counseled the patient about the recommended dietary allowance of 1000 mg of Calcium & 600 IU of vitamin D. The patient was instructed to perform monthly self-breast exams and to schedule an annual exam in a year; The patient is up-to-date with her screening colonoscopy All questions answered and the patient verbalized understanding. Instructed the patient to schedule annual exam in a year Orders: Orders Surgical Today R87.610 - Atypical squamous cells of undetermined significance on cytologic smear of cervix (ASC-US), R87.810 - Cervical high risk human papillomavirus (HPV) DNA test positive AMB Colposcopy Today R87.610 - Atypical squamous cells of undetermined significance on cytologic smear of cervix (ASC-US), R87.810 - Cervical high risk human papillomavirus (HPV) DNA test positive AMB Endometrial Biopsy Today N93.0 - Postcoital and contact bleeding Coding Level of Care Code Est Pt Level 4 (76750) Procedure Only Diagnoses Postcoital bleeding N93.0 Uterine myoma D25.9 ASCUS with positive high risk HPV cervical R87.610; R87.810 Well woman exam Z01.419 CPT Codes Colposcopy - CPT: 84753-Inouippjc of cervix including upper vagina with biopsy and ECC ([id number]) Endometrial Biopsy - CPT: 31212-Mnoiyowvwqx Biopsy ([id number])
== END 2023-06-14 14:06 | disposition home or self-care (01) ==
PROVIDERS: PCP Internal Medicine; Visit Provider Obstetrics & Gynecology
DX: Z01.419 Encounter for gynecological examination (general) (routine) without abnormal findings (principal); N93.0 Postcoital and contact bleeding; D25.9 Leiomyoma of uterus, unspecified; R87.610 Atypical squamous cells of undetermined significance on cytologic smear of cervix (ASC-US); R87.810 Cervical high risk human papillomavirus (HPV) DNA test positive
CPT/HCPCS: 57454; 58110; 99396

== ENCOUNTER 2023-06-14 13:10 | Outpatient (REF) | payer MEDICAID, SELFPAY | END 2023-06-14 13:11 | disposition home or self-care (01) | LOC: HO.LNP 13:10 | PROVIDERS: PCP Internal Medicine; Visit Provider Obstetrics & Gynecology | DX: R87.610 Atypical squamous cells of undetermined significance on cytologic smear of cervix (ASC-US) (principal); R87.810 Cervical high risk human papillomavirus (HPV) DNA test positive; N39.0 Urinary tract infection, site not specified; D25.9 Leiomyoma of uterus, unspecified | CPT/HCPCS: 57454; 58110; 88305; 88342; 88360; 99396 ==

== ENCOUNTER 2023-06-21 11:24 | Outpatient (AMB) | payer MEDICAID, SELFPAY ==
--- NOTE | 2023-06-21 11:26 | A.OFFVIS_ITS ---
Intake Vital Signs 06/21/23 11:29 Height 5 ft 3 in Weight 103 lb 9.876 oz BMI 18.4 BP 116/70 Intake Visit Reasons: EMB/COLPO results Allergies penicillin V Allergy (Intermediate, Verified 06/14/23 13:32) Swelling Penicillins [PENICILLINS] Allergy (Intermediate, Verified 06/14/23 13:32) SWELLING Sulfa (Sulfonamide Antibiotics) [SULFA (SULFONAMIDE ANTIBIOTICS)] Allergy (Intermediate, Verified 06/14/23 13:32) SWELLING HPI HPI Comments History of Present Illness Details Presenting post colpo/cervical biopsy/ECC with EMB for follow-up. The patient is doing well with no complaints. The pathology showed the following: A. Endometrium, biopsy: Predominantly benign endocervical glandular mucosa with blood, mucus, and rare benign atrophic endometrial glands (see comment). B. Endocervix, curettage: Scant benign squamous epithelium and rare benign endocervical glandular epithelium; negative for dysplasia. C. Cervix, 3:00, biopsy: Squamous mucosa with reactive changes and scant detache d endocervical glandular cells; negative for dysplasia. D. Cervix, 6:00, biopsy: Squamous and endocervical glandular mucosa with reactive changes; negative for dysplasia. E. Cervix, 9:00, biopsy: Squamous and endocervical glandular mucosa with reactive changes; negative for dysplasia. F. Cervix, 12:00, biopsy: Squamous and endocervical glandular mucosa with reactive changes; negative for dysplasia. Comment: (A): The specimen may not be representat omari of the endometrium. 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 hysteroscopy D&C) & the risks were discussed with the patient including but not limited: pain, uterine perforation, bleeding, infection, possible injury to bladder, bowel, ureter, possible need for blood transfusion with all its possible risks. The patient verbalized understanding all questions answered and signed consent. The patient was placed into the dorsal lithotomy position; a speculum was inserted in the vagina. Using aseptic technique for the procedure, the cervix was cleansed with Betadine. The anterior lip of the cervix was grasped with a single tooth tenaculum. The uterus was sounded to 6 cm with a 4 mm Pipelle was used. Tissues samples were obtained and placed in formalin, in a patient labeled container and sent to the pathology department. At the end of the procedure, there was minimal bleeding noted The patient tolerated the procedure well and was discharged in good condition with the following instructions: Nothing in the vagina until the bleeding stops. No sex until the bleeding stops, to call if any of the following occurs: fever (>100.4), flu-like symptoms, abdominal pain, heavy bleeding, four smelling vaginal discharge. The patient was instructed to schedule a Follow up appointment in 2 weeks to discuss pathology results of the biopsy and treatment options. This note was generated with a voice recognition program. Some errors may have been overlooked during the review of this note. Sometimes these errors may affect the content or meaning of a given sentence. [id number] Biopsy Assessment & Plan Assessment & Plan (1) ASCUS with positive high risk HPV cervical: Code(s): R87.610 - Atypical squamous cells of undetermined significance on cytologic smear of cervix (ASC-US); R87.810 - Cervical high risk human papillomavirus (HPV) DNA test positive Plan: Discussed with the patient the pathology results of the colposcopy biopsies & endocervical curettage ( negative). Discussed with the patient the sensitivity specificity, positive and negative predictive value in detecting cervical cancer in addition discussed the regression, persistence and progression rates. Recommended co-testing in 12 months, if cytology and or HPV are abnormal will proceed was colposcopy biopsy and endocervical curettage. Instructions given to the patient to schedule a co test appointment in 1 year. All questions answered the patient verbalized understanding. (2) Postcoital bleeding: Comment: Insufficient endometrial sampling on EMB Code(s): N93.0 - Postcoital and contact bleeding Plan: Discussed with the patient the results the pathology showing insufficient sampling of the endometrium, recommended repeat EMB versus hysteroscopy D&C possible polypectomy/myomectomy. Recommended to the patient that the next step is an endometrial sampling via hysteroscopy D&C possible polypectomy versus endometrial biopsy to r/o endometrial pathology including hyperplasia or cancer. All the pros and cons risks and benefits of each approach were discussed with the patient, endometrial biopsy being less invasive, office procedure with less sensitivity and inability diagnose a polyp and removal versus hysteroscopy done under anesthesia more invasive more sensitive to endometrial cancer and possibility of diagnosing and endometrial polyp with the possibility of polypectomy. All questions were answered pt verbalized understanding and decided to proceed with endometrial biopsy, EMB repeated, see procedure note Orders: Orders AMB Endometrial Biopsy Today N93.0 - Postcoital and contact bleeding Coding Level of Care Code Est Pt Level 3 (02889) Procedure Only Diagnoses ASCUS with positive high risk HPV cervical R87.610; R87.810 Postcoital bleeding N93.0 CPT Codes Endometrial Biopsy - CPT: 83499-Fdevhuvxift Biopsy ([id number])
[2023-06-21 11:29] VITALS: BP 116/70; BMI 18.4
== END 2023-06-21 12:12 | disposition home or self-care (01) ==
PROVIDERS: PCP Internal Medicine; Visit Provider Obstetrics & Gynecology
DX: R87.610 Atypical squamous cells of undetermined significance on cytologic smear of cervix (ASC-US) (principal); R87.810 Cervical high risk human papillomavirus (HPV) DNA test positive; N93.0 Postcoital and contact bleeding
CPT/HCPCS: 58100; 99213

== ENCOUNTER 2023-06-21 11:24 | Outpatient (REF) | payer MEDICAID, SELFPAY | END 2023-06-21 11:25 | disposition home or self-care (01) | LOC: HO.LNP 11:24 | PROVIDERS: PCP Internal Medicine; Visit Provider Obstetrics & Gynecology | DX: N93.0 Postcoital and contact bleeding (principal); R87.610 Atypical squamous cells of undetermined significance on cytologic smear of cervix (ASC-US); R87.810 Cervical high risk human papillomavirus (HPV) DNA test positive | CPT/HCPCS: 58100; 88305; 99212 ==

== ENCOUNTER 2023-06-24 10:36 | Outpatient (AMB) | payer MEDICAID, SELFPAY ==
--- NOTE | 2023-06-24 10:40 | MHC.OFFVIS ---
Intake Vital Signs 06/24/23 10:42 Height 5 ft 3 in Weight 103 lb 9.876 oz BMI 18.4 BP 116/70 Intake Visit Reasons: vaginal bleeding Allergies penicillin V Allergy (Intermediate, Verified 06/14/23 13:32) Swelling Penicillins [PENICILLINS] Allergy (Intermediate, Verified 06/14/23 13:32) SWELLING Sulfa (Sulfonamide Antibiotics) [SULFA (SULFONAMIDE ANTIBIOTICS)] Allergy (Intermediate, Verified 06/14/23 13:32) SWELLING HPI HPI Comments History of Present Illness Details Presenting for 3 days post EMB complaining of cramping, no associated vaginal bleeding no nausea or vomiting or fever. Cramping has improved since yesterday markedly. 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 Female Reproductive History Menstrual Age of Menarche: 11 Review of Systems Const All systems reviewed & are unremarkable except as noted in HPI and below Physical Exam Vital Signs: Last Vital Signs BP 116/70 06/24/23 10:42 BMI result Body Mass Index 18.4 GI Palpation (GI): Soft to palpation, nontender and no guarding General: Yes no CVA tenderness External Female Exam: normal external appearance and normal appearance of the urethra Speculum Exam - Vagina: normal appearance of the vagina, normal palpation, no lesions and no masses Speculum Exam - Cervix: normal appearance of the cervix, normal palpation, no lesions, no masses and nontender Bimanual exam- vagina & uterus: normal bimanual exam, normal palpation, uterine size normal, normal palpation, uterine shape normal, No Cervical tenderness present and non-tender Bimanual Exam- Adnexa, other: normal adnexae Back/Spine/Pelvis Back: no CVA tenderness Assessment & Plan Assessment & Plan (1) Pelvic cramping: Code(s): R10.2 - Pelvic and perineal pain Plan: Discussed with patient normal finding on abdominal and pelvic exam, the patient was reassured. Instructions given the patient to call in case of fever above 100.4, nausea or vomiting, vaginal bleeding or persistent or worsening of pelvic cramps and to follow-up in a week for discussion options treatment post EMB. All questions answered, the patient verbalized understanding agreed with the plan Coding Level of Care Code Est Pt Level 3 (15162) Diagnoses Pelvic cramping R10.2
[2023-06-24 10:42] VITALS: BP 116/70; BMI 18.4
== END 2023-06-24 11:16 | disposition home or self-care (01) ==
PROVIDERS: PCP Internal Medicine; Visit Provider Obstetrics & Gynecology
DX: R10.2 Pelvic and perineal pain (principal)
CPT/HCPCS: 99024

== ENCOUNTER → 2023-06-24 10:36 | Outpatient (BNVA) | payer MEDICAID, SELFPAY | PROVIDERS: PCP Internal Medicine; Visit Provider Obstetrics & Gynecology | DX: R10.2 Pelvic and perineal pain (principal) | CPT/HCPCS: 99212 ==

== ENCOUNTER 2023-07-19 11:15 | Outpatient (REF) | payer MEDICAID, SELFPAY ==
--- NOTE | ~2023-07-19 | XR_ITS ---
EXAMINATION: XR HIP, RIGHT XR HIP, LEFT CLINICAL INFORMATION: Pain COMPARISON: MRI right hip from 05/13/2022, right hip radiograph from 04/22/2022 TECHNIQUE: Single view the pelvis 2 views of each hip. FINDINGS: Previously identified fracture of the right sacral ala is less conspicuous on current imaging modality. No acute visible fracture or dislocation. Degenerative changes of the bilateral femoral acetabular joints. Degenerative arthropathy of the lumbosacral spine. Joint space alignment are otherwise maintained. Bowel gas is unremarkable. Soft tissues are unremarkable. XR/XR hip RT min 2V IMPRESSION: 1. Previously identified fracture of the right sacral ala is less conspicuous on current imaging modality. 2. No acute visible fracture or dislocation. 3. Degenerative changes of the bilateral femoral acetabular joints.
--- NOTE | ~2023-07-19 | XR_ITS ---
EXAMINATION: XR HIP, RIGHT XR HIP, LEFT CLINICAL INFORMATION: Pain COMPARISON: MRI right hip from 05/13/2022, right hip radiograph from 04/22/2022 TECHNIQUE: Single view the pelvis 2 views of each hip. FINDINGS: Previously identified fracture of the right sacral ala is less conspicuous on current imaging modality. No acute visible fracture or dislocation. Degenerative changes of the bilateral femoral acetabular joints. Degenerative arthropathy of the lumbosacral spine. Joint space alignment are otherwise maintained. Bowel gas is unremarkable. Soft tissues are unremarkable. XR/XR hip LT w PEL1V IMPRESSION: 1. Previously identified fracture of the right sacral ala is less conspicuous on current imaging modality. 2. No acute visible fracture or dislocation. 3. Degenerative changes of the bilateral femoral acetabular joints.
== END 2023-07-19 11:16 | disposition home or self-care (01) ==
LOC: HO.HOSX 11:15
PROVIDERS: Visit Provider Physician Assistant
DX: M16.0 Bilateral primary osteoarthritis of hip (principal); M24.851 Other specific joint derangements of right hip, not elsewhere classified; M24.852 Other specific joint derangements of left hip, not elsewhere classified
CPT/HCPCS: 73502; 99212

== ENCOUNTER 2023-07-19 13:36 | Outpatient (AMB) | payer MEDICAID, SELFPAY ==
[2023-07-19 13:41] VITALS: BMI 18.2
--- NOTE | 2023-07-19 13:41 | MHC.OFFVIS ---
Intake Vital Signs 07/19/23 13:41 Height 5 ft 3 in Weight 103 lb BMI 18.2 Intake Visit Reasons: Newprob-B/L hip pain Intake Note: Carole is a 52 year old female who presents today for a evaluation for her bilateral hip pain. Patient reports having ongoing for many years. She states that her right hip is worse than the left hip. Her pain is near the glutes area on both sides per patient. Hx of right hip surgery 2006. Hx of injections/PT/Medication mild relief. Allergies penicillin V Allergy (Intermediate, Verified 07/19/23 13:44) Swelling Penicillins [PENICILLINS] Allergy (Intermediate, Verified 07/19/23 13:44) SWELLING Sulfa (Sulfonamide Antibiotics) [SULFA (SULFONAMIDE ANTIBIOTICS)] Allergy (Intermediate, Verified 07/19/23 13:44) SWELLING HPI Newprob-B/L hip pain HPI Details 52-year-old female who presents in the office today for an evaluation of bilateral hip pain. The patient reports many years of ongoing pain. She claims the right hip is worse then the left hip. He reports her pain to be near the glute area bilaterally. She states she has a history of cortisone injections and physical therapy with mild relief. Patient has a history of right hip surgery, z-plasty, in 2006. 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 No ecchymosis, erythema, or edema. Full hip ROM in all planes. No tenderness to palpation over the greater trochanteric bursa. 5/5 strength with resisted hip flexion, knee extension, abduction, and abduction. Able to perform straight leg raise. NVI. Reports pain is in the buttocks area. Assessment & Plan Assessment & Plan (1) Osteoarthritis of right hip: Code(s): M16.11 - Unilateral primary osteoarthritis, right hip Qualifiers: Osteoarthritis type: unspecified Qualified Code(s): M16.11 - Unilateral primary osteoarthritis, right hip (2) Osteoarthritis of left hip: Code(s): M16.12 - Unilateral primary osteoarthritis, left hip Qualifiers: Osteoarthritis type: unspecified Qualified Code(s): M16.12 - Unilateral primary osteoarthritis, left hip (3) Right snapping hip: Code(s): M24.851 - Other specific joint derangements of right hip, not elsewhere classified (4) Left snapping hip: Code(s): M24.852 - Other specific joint derangements of left hip, not elsewhere classified Plan Ms. Cao is a 52-year-old female who presents in the office today for an evaluation of bilateral hip pain. The patient reports many years of ongoing pain. She claims the right hip is worse then the left hip. He reports her pain to be near the glute area bilaterally. She states she has a history of cortisone injections and physical therapy with mild relief. Patient has a history of right hip surgery, z-plasty, in 2006. The patient was prescribed celebrex 200 mg PO BID which was sent to the pharmacy today. She has a history of bilateral hip arthrogram in the past which gave her relief. A referral was placed for a bilateral hip arthrogram to be done at the hospital. Follow up will be PRN, or sooner if needed. X-rays of the bilateral hips which were obtained while in the office today and were reviewed by me, Inge Pham PA-C, revealed bilateral osteoarthritis. Orders: Orders XR hip RT min 2V 07/19/23 M25.559 - Pain in unspecified hip FL arthrogram hip LT 07/19/23 M25.551 - Pain in right hip, M25.552 - Pain in left hip, M25.851 - Other specified joint disorders, right hip, M25.852 - Other specified joint disorders, left hip XR hip LT w PEL1V 07/19/23 M25.559 - Pain in unspecified hip FL arthrogram hip RT 07/19/23 M25.551 - Pain in right hip, M25.552 - Pain in left hip, M25.851 - Other specified joint disorders, right hip, M25.852 - Other specified joint disorders, left hip Medications: New celecoxib (Celebrex) 200 mg PO BID 30 days 60 caps 0RF Patient Instructions: Scribed for Inge Pham PA-C by Skye Rey certified medical coder, on 07/19/2023 at 1:38 pm, EST. Coding Level of Care Code New Pt Level 4 (38836) Diagnoses Osteoarthritis of right hip, unspecified osteoarthritis type M16.11 Osteoarthritis type: unspecified Osteoarthritis of left hip, unspecified osteoarthritis type M16.12 Osteoarthritis type: unspecified Right snapping hip M24.851 Left snapping hip M24.852
== END 2023-07-19 14:50 | disposition home or self-care (01) ==
PROVIDERS: PCP Pediatrics; Visit Provider Physician Assistant
DX: M16.0 Bilateral primary osteoarthritis of hip (principal); M24.851 Other specific joint derangements of right hip, not elsewhere classified; M24.852 Other specific joint derangements of left hip, not elsewhere classified
CPT/HCPCS: 99214

== ENCOUNTER 2023-08-02 10:21 | Outpatient (AMB) | payer MEDICAID, SELFPAY ==
--- NOTE | 2023-08-02 10:23 | A.OFFVIS_ITS ---
Intake Vital Signs 08/02/23 10:25 Height 5 ft 3 in Weight 105 lb 13.15 oz BMI 18.7 BP 148/76 H Intake Visit Reasons: EMB Results [place] Required: No Information Interpreted: non-clinical & clinical Corporate Compliance Manager: Corporate Compliance Manager Present Accompanied by: Self / Same As Patient Allergies penicillin V Allergy (Intermediate, Verified 08/02/23 10:26) Swelling Penicillins [PENICILLINS] Allergy (Intermediate, Verified 08/02/23 10:26) SWELLING Sulfa (Sulfonamide Antibiotics) [SULFA (SULFONAMIDE ANTIBIOTICS)] Allergy (Intermediate, Verified 08/02/23 10:26) SWELLING Is last menstrual period known: Yes Last menstrual period: 07/17/20 Post menopausal: No Patient : No Do you need a note to return to daycare/school/sports/work: Yes (for surgery on tuesday) HPI HPI Comments History of Present Illness Details Presenting for follow-up post endometrial biopsy. Doing well with no complaints. The pathology showed the following: Endometrium, biopsy: Predominantly blood, with benign endocervical glandular epithelium, squamous epithelium, reactive and metaplastic epithelium, and rare endometrial cells; insufficient for endometrial evaluation The patient had a previous endometrial biopsy few weeks prior to last EMB which was similar to the last 1. Ultrasound endometrial stripe was 3 mm , the patient is having recurrent postcoital bleeding. 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 Female Reproductive History Menstrual Age of Menarche: 11 Date of last menstrual period: 07/17/20 Total pregnancies: 2 Full term: 2 Review of Systems Const All systems reviewed & are unremarkable except as noted in HPI and below Reports as per HPI and Reports no additional complaints Card Reports as per HPI and Reports no additional complaints Resp Reports as per HPI and Reports no additional complaints GI Reports no additional complaints Reports no additional complaints Physical Exam Vital Signs: Last Vital Signs BP 148/76 H 08/02/23 10:25 BMI result Body Mass Index 18.7 Const General: cooperative, healthy appearing and comfortable Chest Chest palpation & inspection: normal inspection of the chest and normal palpation of entire chest wall Breast/axilla inspection: normal inspection of the breasts and normal inspection of the axillae Breast/axilla palpation: normal palpation of the breasts, normal palpation of the axillae and no axillary lymphadenopathy Resp Effort & Inspection: normal respiratory effort Auscultation: clear to auscultation bilaterally Percussion: percussion normal Cardio Palpation: normal PMI Rate: regular rate Rhythm: regular rhythm Heart sounds: no murmurs and no rubs Peripheral pulses: Peripheral pulses 2+ throughout GI Inspection: Yes normal to inspection Palpation (GI): Soft to palpation, nontender, no guarding, not rigid and No hepatosplenomegaly present Percussion: Yes normal to percussion Auscultation: normal bowel sounds Rectal Exam - Female: deferred Assessment & Plan Assessment & Plan (1) Postcoital bleeding: Comment: Insufficient endometrial sampling on EMB x2 Code(s): N93.0 - Postcoital and contact bleeding Plan: Discussed with the patient the results the pathology, recommended hysteroscopy D&C possible polypectomy to rule out endometrial pathology including endometrial hyperplasia and/or malignancy. Discussed with the patient the procedure , all benefits and risks including but not limited to inability to complete the procedure , bleeding, infection, possible need for blood transfusion with all its risk ( HIV,syphilis, Hepatitis, anaphylaxis shock, others..), injury to bladder, rectum, possible need for laparoscopy/laparotomy or hysterectomy. The patient verbalized understanding and signed the consent. Instructions given the patient to schedule a 2 week postoperative appointment Coding Level of Care Code Est Pt Level 3 (71232) Diagnoses Postcoital bleeding N93.0
[2023-08-02 10:25] VITALS: BP 148/76; BMI 18.7
== END 2023-08-02 11:46 | disposition home or self-care (01) ==
LOC: HO.HWS 10:21
PROVIDERS: PCP Internal Medicine; Visit Provider Obstetrics & Gynecology
DX: N93.0 Postcoital and contact bleeding (principal)
CPT/HCPCS: 99213

== ENCOUNTER → 2023-08-02 10:21 | Outpatient (BNVA) | payer MEDICAID, SELFPAY | PROVIDERS: PCP Internal Medicine; Visit Provider Obstetrics & Gynecology | DX: N93.0 Postcoital and contact bleeding (principal) | CPT/HCPCS: 99212 ==

== ENCOUNTER 2023-08-05 12:38 | Day surgery (SDC) | payer MEDICAID, SELFPAY ==
[2023-08-05 13:02] VITALS: BP 135/63; PULSE 74; RESP 16; TEMP 36.7; O2SAT 95; BMI 17.5
--- NOTE | 2023-08-05 13:17 | PC.NURSE ---
No preop urine needed per Dr. Quinn as patient has gone thorough menopause. Dory Gilbert OR nurse aware.
--- NOTE | 2023-08-05 13:21 | MHC.SHP ---
Pre-Procedural Eval Section A Date of Service: 08/05/23 The patient is an INPATIENT: No Changes since office visit: No Cold of Flu in the past 2 weeks, No New Medical Problems, No Changes in Medication and No Patient answered all questions The History & Physical has been completed within 30 days and I have reviewed it.: Yes Section B Chief Complaint: Postcoital and contact bleeding Allergies: Allergies Allergy/AdvReac Type Severity Reaction Status Date / Time penicillin V Allergy Intermediate Swelling Verified 08/05/23 13:01 Penicillins [PENICILLINS] Allergy Intermediate SWELLING Verified 08/05/23 13:01 Sulfa (Sulfonamide Allergy Intermediate SWELLING Verified 08/05/23 13:01 Antibiotics) [SULFA (SULFONAMIDE ANTIBIOTICS)] Plan Diagnosis/Plan: Unchanged I have reviewed the history and physical and performed a pertinent physical examination on my patient. No changes have occurred unless specified. Time Spent With Patient Time: Total time managing care of this patient today ____ minutes.
--- NOTE | 2023-08-05 13:37 | HO.ANESPROP2 ---
HPI - Anesthesia Eval Consult details Narrative: 52 yo female patient for Hysteroscopy, D&C, poss myomectomy, poss polypectomy PMFSH Active Problems Active Problems: All Active Problems (Updated 08/05/23 @ by Kiera Broderick MD) Left snapping hip (Acute) Right snapping hip (Acute) Osteoarthritis of left hip (Acute) Osteoarthritis of right hip (Acute) Right hip impingement syndrome (Acute) Left hip impingement syndrome (Acute) Bilateral hip pain (Acute) Pelvic cramping (Acute) Encounter for screening colonoscopy (Acute) Well woman exam (Acute) ASCUS with positive high risk HPV cervical (Acute) Uterine myoma (Acute) Screen for STD (sexually transmitted disease) (Acute) Postcoital bleeding (Acute) Bacterial vaginosis (Acute) Osteoarthritis of right knee (Acute) Swelling, mass, or lump in head and neck (Chronic) Abdominal bloating with cramps (Acute) Chronic constipation (Acute) On methadone Smoker. Last cigarette just before coming in Past Medical History Medical History Abdominal bloating with cramps Chronic constipation Migraine High cholesterol Family History Family History Mother Breast cancer Family history of problems with anesthesia: No Surgical History Surgical History History of tonsillectomy and adenoidectomy History of hip surgery H/O laparoscopy Hx of colonoscopy History of Problems with Anesthesia: No Social History Social History Household Members Other:: Single Alcohol intake: current Alcohol intake frequency: holidays/special occasions only Patient Tobacco Use Status: Current everyday Tobacco user Tobacco use type: Cigarette Cigarettes Per Day: 4 Smoked in Last 30 Days: Yes Use of substances other than those prescribed or required for medical reasons: No Are you DNR?: No Advance Directives: No Advance Directives Information Provided: Yes Current occupational status: employed 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 Meds Allergies Allergy/AdvReac Type Severity Reaction Status Date / Time penicillin V Allergy Intermediate Swelling Verified 08/05/23 13:01 Penicillins [PENICILLINS] Allergy Intermediate SWELLING Verified 08/05/23 13:01 Sulfa (Sulfonamide Allergy Intermediate SWELLING Verified 08/05/23 13:01 Antibiotics) [SULFA (SULFONAMIDE ANTIBIOTICS)] Home Medications Medication Instructions Recorded Confirmed Last Taken Type methadone 44 mg PO DAILY 10/09/21 08/05/23 08/05/23 History hydroxyzine HCl 25 mg tablet 25 mg PO BEDTIME PRN anxiety 04/20/23 08/05/23 Unknown History losartan 50 mg tablet 50 mg PO QAM 04/20/23 08/05/23 Unknown History Exam Height,Weight and Vital Signs: Height 5 ft 3.5 in Weight 45.541 kg Last Vital Signs Temp 98.0 F 08/05/23 13:02 Pulse 74 08/05/23 13:02 Resp 16 08/05/23 13:02 BP 135/63 08/05/23 13:02 Pulse Ox 95 08/05/23 13:02 O2 Del Method Room Air 08/05/23 13:02 Airway Mallampati Class: II TM Dist: >3cm Neck ROM: Full Loose/Missing/Broken Teeth: No (Denies broken, loose, missing teeth) Heart: RRR Lungs: CTAB. No wheeze Assessment and Plan Assessment Anesthesia Assessment: Anesthesia Plan Discussed and Chart Reviewed Final Anesthetic Review Family History of Problems with Anesthesia: No History of Problems with Anesthesia: No NPO: Yes ASA Class: II Final Preanesthetic Review: No Changes in Pt Med Stat, Meds/Allgs Chart Reviewed, Consent Obtained/Reviewed and Anes Risks/Benef Reviewed Patient Risk: Intermediate Procedure Risk: Low Assessment/Block/Sedation in SS: Assess/Block/Sedation-SS Anesthetic Plan Anesthetic Plan: GA Disposition: Standard PACU
--- NOTE | 2023-08-05 13:52 | PM.OP ---
Brief Operative Note Date of Service: 08/05/23 Pre-op diagnosis: Postcoital bleeding Post-op diagnosis: same (Normal endometrial cavity) Procedure: Hysteroscopy D&C Surgeon: Santo Quinn MD Anesthesia: GLMA Was an Call Or Contact Centre Coach used for this Procedure?: No Estimated blood loss (mL): 0 Pathology: other (Endometrial Scrapping.) Condition: stable Disposition: PACU
--- NOTE | 2023-08-05 13:53 | W.PM.OPN ---
Operative Note Operative Note Date of Service: 08/05/23 Narrative: Preop Diagnosis: Post coital bleeding Operation: Diagnostic Hysteroscopy, Dilataion & Curettage Post Op Diagnosis: Normal endometrial cavity QBL: Minimal Anesthesia: GLMA Surgeon: Santo Quinn MD Cyanide Furnace Operator: None Complication: None Pathology: Endometrial Scrapings Procedure: The patient was put in the dorsal lithotomy position, scrubbed, and draped in the usual manner. A sterile speculum was inserted in the patient's vagina. The anterior lip of the cervix was grasped with a single tooth tenaculum. The cervix was dilated up to 5 mm, then the scope was inserted in the patient's uterus. Inspection revealed Normal endometrial cavity. The Myosure Reach device was used; the scope was removed from the endometrial cavity , sharp curettings was carried on with minimal to moderate amount of tissues retrieved. At the end of the procedure, all instruments were taken out of the patient uterine and vaginal cavity. The single tooth tenaculum was removed and homeostasis was assured using pressure,. The patient tolerated the procedure well and was transferred to the PACU in a stable condition.
[2023-08-05 14:12] VITALS: BP 133/54; PULSE 80; RESP 16; TEMP 36.2; O2SAT 97
[2023-08-05 14:17] VITALS: BP 137/69; PULSE 76; RESP 16; O2SAT 100
[2023-08-05 14:22] VITALS: BP 151/64; PULSE 77; RESP 18; O2SAT 100
[2023-08-05 14:27] VITALS: BP 134/65; PULSE 92; RESP 18; O2SAT 100
[2023-08-05 14:53] VITALS: BP 146/59; PULSE 71; RESP 18; TEMP 36.3; O2SAT 98
== END 2023-08-05 15:29 | disposition home or self-care (01) ==
PROVIDERS: PCP Internal Medicine; Visit Provider Obstetrics & Gynecology
PROC: 0UDB8ZZ Extraction of Endometrium, Via Natural or Artificial Opening Endoscopic (ICD-10-PCS; CPT 58558; principal; 2023-08-05 14:10)
DX: N93.0 Postcoital and contact bleeding (principal); R10.2 Pelvic and perineal pain; R14.0 Abdominal distension (gaseous); E78.00 Pure hypercholesterolemia, unspecified; K59.09 Other constipation; G43.909 Migraine, unspecified, not intractable, without status migrainosus; Z79.899 Other long term (current) drug therapy; F11.90 Opioid use, unspecified, uncomplicated; Z88.0 Allergy status to penicillin; Z88.2 Allergy status to sulfonamides; F17.210 Nicotine dependence, cigarettes, uncomplicated
CPT/HCPCS: 58558; 88305; J0131; J1100; J1885; J2250; J2405; J2704

== ENCOUNTER → 2023-08-05 12:38 | Outpatient (BNV) | payer MEDICAID, SELFPAY | PROVIDERS: PCP Internal Medicine; Visit Provider Obstetrics & Gynecology | DX: N93.0 Postcoital and contact bleeding (principal) | CPT/HCPCS: 58558 ==

== ENCOUNTER 2023-08-19 13:36 | Outpatient (AMB) | payer MEDICAID, SELFPAY ==
--- NOTE | 2023-08-19 13:45 | A.OFFVIS_ITS ---
Intake Vital Signs 08/19/23 13:47 Height 5 ft 3 in Weight 103 lb BMI 18.2 BP 140/64 H Intake Visit Reasons: vaginal discharge Intake Note: has smell and chalky discharge Autos Disassembler Required: No Information Interpreted: non-clinical & clinical Industrial Property Appraiser: Industrial Property Appraiser Present (Diana) Allergies penicillin V Allergy (Intermediate, Verified 08/19/23 13:49) Swelling Penicillins [PENICILLINS] Allergy (Intermediate, Verified 08/19/23 13:49) SWELLING Sulfa (Sulfonamide Antibiotics) [SULFA (SULFONAMIDE ANTIBIOTICS)] Allergy (Intermediate, Verified 08/19/23 13:49) SWELLING Medication List - Last Reconciled 08/19/23 by Dominique English CNM celecoxib (Celebrex) 200 mg PO BID 30 days hydroxyzine HCl 25 mg PO BEDTIME PRN losartan 50 mg PO QAM [methadone 44 mg PO DAILY] Is last menstrual period known: No Post menopausal: Yes Patient : No HPI vaginal discharge HPI Details Patient here for problematic vaginal discharge that has an odor that bothering her. She recently was and then became sexually active with a new partner and has been extremely sexually active every day. She had some bleeding after words that prompted testing and she recently had an endometrial procedure done on 08/05 she has not seen Dr. Quinn yet for follow-up. She had sex within the week after. 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 External Female Exam: normal external appearance Speculum Exam - Vagina: normal appearance of the vagina and normal vaginal discharge Speculum Exam - Cervix: normal appearance of the cervix Bimanual exam- vagina & uterus: normal bimanual exam, uterine size normal, consistency normal, uterine mobility normal, uterine shape normal and non-tender Bimanual Exam- Adnexa, other: normal adnexae, no masses and No adnexal tenderness Results Reviewed Results Reviewed: Name: Carole Cao Age/Sex: 52/F Attending: Santo Quinn MD : 1970 Submitted by: Santo Quinn MD Copies to: Gabriel Aly MD MR #: [id number] Status: [facility] Collected: 08/05/23 Location: [facility] Received: 08/05/23 Diagnosis Endometrium, curettage: Rare fragments of benign inactive endometrium and fragment of smooth muscle (see comment). Comment: The endometrium is very scant and may not be field representative/health education. Clinical follow-up is warranted. Clinical History Postcoital and contact bleeding Microscopic Description Microscopic sections reviewed. Material Received EM Gross Description Received in formalin labeled ?EMC? on blood-stained Telfa is a 1.4 x 1.2 x 0.3 cm aggregate of predominantly mucus and blood and multiple irregular fragments of congested and hemorrhagic pink- maroon tissue, submitted in toto in a cassette labeled A. CEDS Copies To Gabriel Aly MD [address] [place] [id number] Testing in May negative for HIV hep B hep C and syphilis. Assessment & Plan Assessment & Plan (1) ASCUS with positive high risk HPV cervical: Code(s): R87.610 - Atypical squamous cells of undetermined significance on cytologic smear of cervix (ASC-US); R87.810 - Cervical high risk human papillomavirus (HPV) DNA test positive (2) Problematic vaginal discharge: Code(s): N89.8 - Other specified noninflammatory disorders of vagina Plan Reviewed safer sex urged that her partner get tested for everything as well. Reviewed some of the results for STIs that have been done in the past will await the results of these test today. Discussed allowing time for healing after interventions and EMB ease and endometrial procedures. Patient to schedule her visit with Dr. Quinn for follow-up. Orders: Orders Bacterial Vaginosis Panel Today Z11.3 - Encounter for screening for infections with a predominantly sexual mode of transmission CT NG by PCR Today Z11.3 - Encounter for screening for infections with a predominantly sexual mode of transmission Coding Level of Care Code Est Pt Level 3 (27348) Diagnoses ASCUS with positive high risk HPV cervical R87.610; R87.810 Problematic vaginal discharge N89.8
[2023-08-19 13:47] VITALS: BP 140/64; BMI 18.2
== END 2023-08-19 14:32 | disposition home or self-care (01) ==
PROVIDERS: PCP Internal Medicine; Visit Provider Advanced Practice Midwife
DX: R87.610 Atypical squamous cells of undetermined significance on cytologic smear of cervix (ASC-US) (principal); R87.810 Cervical high risk human papillomavirus (HPV) DNA test positive; N89.8 Other specified noninflammatory disorders of vagina
CPT/HCPCS: 99213

== ENCOUNTER 2023-08-19 14:31 | Outpatient (REF) | payer MEDICAID, SELFPAY ==
[2023-08-20 01:28] LABS: CT PCR NOT DETECTED (Not Detect.); NG PCR NOT DETECTED (Not Detect.)
[2023-08-21 14:31] LABS: BV Int Neg Control Negative (Negative); BV Int Pos Control Positive (Positive)
== END 2023-08-19 14:32 | disposition home or self-care (01) ==
LOC: HO.LNP 14:31
PROVIDERS: Visit Provider Advanced Practice Midwife
DX: R30.0 Dysuria (principal); Z11.3 Encounter for screening for infections with a predominantly sexual mode of transmission
CPT/HCPCS: 0353U; 87086; 87480; 87510; 87660; 99212

== ENCOUNTER 2023-09-01 16:09 | Outpatient (AMB) | payer MEDICAID, SELFPAY ==
[2023-09-01 16:10] VITALS: BP 142/66; BMI 18.2
--- NOTE | 2023-09-01 16:10 | MHC.OFFVIS ---
Intake Vital Signs 09/01/23 16:10 Height 5 ft 3 in Weight 103 lb BMI 18.2 BP 142/66 H Intake Visit Reasons: post op Sonogram Technician Required: No Allergies penicillin V Allergy (Intermediate, Verified 09/01/23 16:11) Swelling Penicillins [PENICILLINS] Allergy (Intermediate, Verified 09/01/23 16:11) SWELLING Sulfa (Sulfonamide Antibiotics) [SULFA (SULFONAMIDE ANTIBIOTICS)] Allergy (Intermediate, Verified 09/01/23 16:11) SWELLING Is last menstrual period known: No Post menopausal: Yes Patient : No HPI HPI Comments History of Present Illness Details The patient is presenting post hysteroscopy D&C no complaints minimal vaginal bleeding no feverishness chills or abdominal pain. The pathology showed the following: Rare fragments of benign inactive endometrium and fragment of smooth muscle (see comment). Comment: The endometrium is very scant and may not be payroll representative. Clinical follow-up is warranted The patient had 2 previous office biopsies with insufficient endometrium Ultrasound done in 06/11 endometrial stripe was 3 mm but the patient kept on having recurrent postmenopausal/postcoital bleeding PFSH Medical History Abdominal bloating with cramps Chronic constipation Migraine High cholesterol Surgical History Hx of dilation and curettage History of tonsillectomy and adenoidectomy History of hip surgery H/O laparoscopy Hx of colonoscopy Family History Mother Breast cancer Social History Household Members Other:: Single Alcohol intake: current Alcohol intake frequency: holidays/special occasions only Patient Tobacco Use Status: Current everyday Tobacco user Tobacco use type: Cigarette Cigarettes Per Day: 4 Current occupational status: employed 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0 - Postcoital and contact bleeding Plan: Discussed with the patient the results the endometrial pathology, but not be payroll representative of the endometrial evaluation, explained to the patient that endometrial pathology including endometrial hyperplasia or has not been ruled out, recommended referral to [facility] for further management. All questions answered, the patient verbalized understanding. Coding Level of Care Code Est Pt Level 3 (09699) Diagnoses Postcoital bleeding N93.0
== END 2023-09-01 16:22 | disposition home or self-care (01) ==
PROVIDERS: PCP Internal Medicine; Visit Provider Obstetrics & Gynecology
DX: N93.0 Postcoital and contact bleeding (principal)
CPT/HCPCS: 99213

== ENCOUNTER → 2023-09-01 16:09 | Outpatient (BNVA) | payer MEDICAID, SELFPAY | PROVIDERS: PCP Internal Medicine; Visit Provider Obstetrics & Gynecology | DX: N93.0 Postcoital and contact bleeding (principal) | CPT/HCPCS: 99212 ==

== ENCOUNTER 2023-09-08 09:40 | Outpatient (REF) | payer MEDICAID, SELFPAY | END 2023-09-08 09:41 | disposition home or self-care (01) | LOC: HO.HOSX 09:40 | PROVIDERS: Visit Provider Physician Assistant | DX: M17.0 Bilateral primary osteoarthritis of knee (principal) | CPT/HCPCS: 20610; 73560; 73565; 99212; J1040 ==

== ENCOUNTER 2023-09-08 13:42 | Outpatient (AMB) | payer MEDICAID, SELFPAY ==
--- NOTE | 2023-09-08 13:52 | MHC.OFFVIS ---
Intake Intake Visit Reasons: OV- B/L Knee pain Intake Note: Carole is a 52 year old female who presents today for a follow up of her right knee but also having concerns of her left knee, last injection 03/19/22. Allergies penicillin V Allergy (Intermediate, Verified 09/08/23 13:53) Swelling Penicillins [PENICILLINS] Allergy (Intermediate, Verified 09/08/23 13:53) SWELLING Sulfa (Sulfonamide Antibiotics) [SULFA (SULFONAMIDE ANTIBIOTICS)] Allergy (Intermediate, Verified 09/08/23 13:53) SWELLING HPI OV- B/L Knee pain HPI Details 52-year-old female who presents in the office today for a follow up of bilateral knee pain. I last saw the patient on 03/19/2022 for right knee at which time she received a cortisone injection. 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 No ecchymosis, erythema, or joint effusion. No tenderness to palpation to the medial or lateral joint lines. Full knee extension and flexion. Mild crepitus felt with ROM. NVI. Office Procedures Joint Injection/Drain Joint Injection/Drain Primary Site: right knee Secondary Site: left knee Prep: site was prepped using aseptic technique, ethochloride spray was applied and injection warnings given Injected: 80 mg of, DepoMedrol, with 8 mL of (2% plain lido ) and in the joint Approach Used: anterolateral Procedure: The patient tolerated the procedure well, but had some pain with the injection and there was some relief with the local anesthesia Coding 72861 - Large joint Procedure code (CPT) selection complete Assessment & Plan Assessment & Plan (1) Osteoarthritis of right knee: Code(s): M17.11 - Unilateral primary osteoarthritis, right knee Qualifiers: Osteoarthritis type: unspecified Qualified Code(s): M17.11 - Unilateral primary osteoarthritis, right knee (2) Osteoarthritis of left knee: Code(s): M17.12 - Unilateral primary osteoarthritis, left knee Qualifiers: Osteoarthritis type: unspecified Qualified Code(s): M17.12 - Unilateral primary osteoarthritis, left knee Plan Ms. Cao is a 52-year-old female who presents in the office today for a follow up of bilateral knee pain. I last saw the patient on 03/19/2022 for right knee at which time she received a cortisone injection. The patient was offered a cortisone injection in the bilateral knees with 80 mg of DepoMedrol. The patient was explained the risk, benefits, and alternatives to receiving this injection. After receiving consent for the injection, the patient had the procedure done while in office today. The patient tolerated the procedure well with no complications. Follow up will be PRN, or sooner if needed. X-rays of the bilateral knees which were obtained while in the office today and were reviewed by me, Inge Pham PA-C, revealed no acute fracture or dislocation. Orders: Orders XR knee standing BI 09/08/23 M25.569 - Pain in unspecified knee XR knee RT 2V 09/08/23 M25.569 - Pain in unspecified knee XR knee LT 2V 09/08/23 M25.569 - Pain in unspecified knee Patient Instructions: Scribed for Inge Pham PA-C by Skye Rey medical device sales representative, on 09/08/2023 at 2:02 pm, EST. Coding Level of Care Code Est Pt Level 3 (83981) Diagnoses Osteoarthritis of right knee, unspecified osteoarthritis type M17.11 Osteoarthritis type: unspecified Osteoarthritis of left knee, unspecified osteoarthritis type M17.12 Osteoarthritis type: unspecified CPT Codes Coding - 93476 Large joint: 27570 - Large joint ([id number])
== END 2023-09-08 14:07 | disposition home or self-care (01) ==
PROVIDERS: PCP Internal Medicine; Visit Provider Physician Assistant
DX: M17.0 Bilateral primary osteoarthritis of knee (principal)
CPT/HCPCS: 20610; 99213

== ENCOUNTER 2023-10-03 12:58 | Outpatient (REF) | payer MEDICAID, SELFPAY ==
--- NOTE | ~2023-10-03 | FL_ITS ---
EXAMINATION: XR ARTHROGRAM HIP, LEFT CLINICAL INFORMATION: Left hip pain COMPARISON: 07/19/2023 TECHNIQUE: Left hip was identified with fluoroscopy, and overlying skin prepped and draped in normal sterile fashion. Skin and subcutaneous tissues were anesthetized with 1% buffered lidocaine. Subsequently, a 22-gauge spinal needle was introduced into the left hip joint space, and small amount of Omnipaque was injected to verify intra-articular position. Subsequently, 8 mL of a mixture of 2% lidocaine and 80 mL Depo-Medrol was injected into the joint. There were no complications. The patient tolerated the procedure well. FINDINGS: There are no fractures or dislocations. No joint effusion is identified. No bone, joint or soft tissue abnormality is demonstrated. FLUOROSCOPY TIME: 19 seconds DOSE AREA PRODUCT: 81 cGy-cm2 (centigray-centimeter squared) FL/FL arthrogram hip LT IMPRESSION: Successful intra-articular injection of 80 mL Depo-Medrol into the left hip joint. Procedure was performed by Bk Brizuela PA-C under direct supervision of Dr. Hernandez Del Castillo.
--- NOTE | ~2023-10-03 | FL_ITS ---
EXAMINATION: XR ARTHROGRAM HIP, RIGHT CLINICAL INFORMATION: Right hip pain COMPARISON: 07/19/2023 TECHNIQUE: Right hip was identified with fluoroscopy, and overlying skin prepped and draped in normal sterile fashion. Skin and subcutaneous tissues were anesthetized with 1% buffered lidocaine. Subsequently, a 22-gauge spinal needle was introduced into the left hip joint space, and small amount of Omnipaque was injected to verify intra-articular position. Subsequently, 8 mL of a mixture of 2% lidocaine and 80 mL Depo-Medrol was injected into the joint. There were no complications. The patient tolerated the procedure well. FINDINGS: There are no fractures or dislocations. No joint effusion is identified. No bone, joint or soft tissue abnormality is demonstrated. FLUOROSCOPY TIME: 14 seconds DOSE AREA PRODUCT: 82 cGy-cm2 (centigray-centimeter squared) FL/FL arthrogram hip RT IMPRESSION: Successful intra-articular injection of 80 mL Depo-Medrol into the right hip joint. Procedure was performed by Bk Brizuela PA-C under direct supervision of Dr. Hernandez Del Castillo.
== END 2023-10-03 12:59 | disposition home or self-care (01) ==
LOC: HO.XRAY 12:58
PROVIDERS: PCP Internal Medicine; Visit Provider Physician Assistant
DX: M25.851 Other specified joint disorders, right hip (principal); M25.852 Other specified joint disorders, left hip; M25.551 Pain in right hip; M25.552 Pain in left hip
CPT/HCPCS: 27093; 73525

== ENCOUNTER → 2023-10-03 12:59 | Outpatient (BNV) | payer MEDICAID, SELFPAY | PROVIDERS: PCP Internal Medicine; Visit Provider Radiology Diagnostic Radiology | DX: M25.551 Pain in right hip (principal); M25.552 Pain in left hip | CPT/HCPCS: 27093; 73525 ==

== ENCOUNTER 2023-12-20 10:15 | Outpatient (REF) | payer MEDICAID, SELFPAY ==
[2023-12-20 14:13] LABS: Alanine Aminotransferase 20 U/L (0-31); Alkaline Phosphatase 71 U/L (39-117); Anion Gap 12 (12-20); Aspartate Amino Transferase 20 U/L (5-31); Bilirubin Total 0.6 mg/dL (0.0-1.0); Blood Urea Nitrogen 13 mg/dL (9-16); Calcium 9.2 mg/dL (8.4-10.2); Carbon Dioxide 25 mmol/L (22-29); Chloride 109 mmol/L (96-108); Cholesterol 239 mg/dL (<200); Estimated Glomerular Filt Rate > 60; Glucose Random 107 mg/dL (60-115); HDL Cholesterol 87 mg/dL (>40); LDL Cholesterol Calculated 129 mg/dL (<100); Potassium 3.8 mmol/L (3.3-5.1); Sodium 142 mmol/L (135-145); Triglycerides 117 mg/dL (<150)
== END 2023-12-20 10:16 | disposition home or self-care (01) ==
LOC: HO.CHCLDS 10:15
PROVIDERS: Visit Provider Internal Medicine
DX: I10 Essential (primary) hypertension (principal)
CPT/HCPCS: 36415; 80053; 80061

== ENCOUNTER 2024-05-01 14:34 | Outpatient (REF) | payer MEDICAID, SELFPAY ==
--- NOTE | ~2024-05-01 | MM_ITS ---
EXAMINATION: MM SCREENING DIGITAL BREAST TOMOSYNTHESIS, BILATERAL CLINICAL INFORMATION: Screening. Asymptomatic. COMPARISON: Mammography: This study is compared with prior exams dating back to 2019. TECHNIQUE: Digital breast tomosynthesis is performed in both the craniocaudal and mediolateral oblique views along with computer-aided detection (CAD). Synthesized 2D images are generated from the tomosynthesis. FINDINGS: The breasts are heterogeneously dense, which may obscure small masses (ACR BI-RADS breast composition Category c). There is an asymmetry of the inferior aspect of the right breast. This occurs in the MLO projection. Additional mammographic and targeted sonographic imaging of this finding are advised. In the left breast, there are no significant masses, abnormal calcifications, or other abnormalities. MM/MM tomosynthesis screening BI IMPRESSION: Asymmetry of the right breast warrants additional mammographic and targeted sonographic imaging. No mammographic signs of malignancy left breast. ASSESSMENT: BI-RADS BI-RADS 0 - Incomplete: Needs additional Imaging. RECOMMENDATION: 1. Additional views of the right breast. 2. Targeted ultrasound if warranted after review of the additional views. 3. Radiology department staff will contact the patient for additional imaging. Additional Imaging required This examination should not preclude the clinical evaluation of a suspicious palpable abnormality. This patient's information was entered into a reminder system with a target due date for their next mammogram. Electronically signed by: Kristie Kitchen MD 05/24/2024 04:05 PM EDT
== END 2024-05-01 14:35 | disposition home or self-care (01) ==
LOC: HO.MAMMO 14:34
PROVIDERS: PCP Internal Medicine; Visit Provider Internal Medicine
DX: Z12.31 Encounter for screening mammogram for malignant neoplasm of breast (principal)
CPT/HCPCS: 77063; 77067

== ENCOUNTER → 2024-05-01 14:45 | Outpatient (BNV) | payer MEDICAID, SELFPAY | PROVIDERS: PCP Internal Medicine; Visit Provider Radiology Diagnostic Radiology | DX: Z12.31 Encounter for screening mammogram for malignant neoplasm of breast (principal) | CPT/HCPCS: 77063; 77067 ==

== ENCOUNTER 2025-01-27 07:46 | Emergency (ER) | payer OTHER, SELFPAY ==
--- NOTE | ~2025-01-27 | XR_ITS ---
CLINICAL HISTORY: shut in door 3 view left foot Comparison: None Findings: Moderately severe hallux valgus with associated degenerative change and subluxation at the 1st metatarsophalangeal joint. No ankle effusion. No radiopaque foreign body. IMPRESSION: No fracture or malalignment. Moderately severe hallux valgus. This document has been electronically signed by: Jt Woody MD on 01/27/2025 08:29:29
[2025-01-27 07:49] VITALS: BP 146/80; PULSE 82; RESP 19; TEMP 36.6; O2SAT 98; BMI 15.9
--- NOTE | 2025-01-27 08:03 | PC.NURSE ---
patient ambulated independently from triage into room, xray taken. awaiting results at this time
--- NOTE | 2025-01-27 08:31 | ED.LOWEXIN ---
HPI - Extremity Injury (Lower) General Chief Complaint: Extremity Injury, Lower Stated Complaint: l foot inj at work Time Seen by Provider: 01/27/25 08:00 Source: patient and old records reviewed Mode of arrival: ambulatory Limitations: no limitations History of Present Illness ED Provider: DINA GOINS Narrative: 54 yo female with PMH of constipation/arthritis/bunion who was at work yesterday and her L foot got shut between heavy steel doors. No other trauma reported. Has pain to top of L foot. She takes NSAIDs no sig relief. She has been hobbling on it at work. complaint: foot injury Onset (ago): day(s) (yesterday) Injury: Left: foot Type of Injury: blunt Place: work Severity: moderate Relieving factors: immobilization Exacerbating factors: weight bearing, movement and palpation Context: direct blow Associated symptoms: swelling Other symptoms: none Related Data Home Medications ?Medication ?Instructions ?Recorded ?Confirmed methadone 44 mg PO DAILY 10/09/21 08/19/23 hydroxyzine HCl 25 mg tablet 25 mg PO BEDTIME PRN anxiety 04/20/23 08/19/23 losartan 50 mg tablet 50 mg PO QAM 04/20/23 08/19/23 Previous Rx's ?Medication ?Instructions ?Recorded celecoxib 200 mg capsule (Celebrex) 200 mg PO BID 30 days #60 caps 07/19/23 cyclobenzaprine 10 mg tablet 10 mg PO TID PRN muscle spasm #20 01/27/25 tabs Allergies Allergy/AdvReac Type Severity Reaction Status Date / Time penicillin V Allergy Intermediate Swelling Verified 01/27/25 07:50 Penicillins [PENICILLINS] Allergy Intermediate SWELLING Verified 01/27/25 07:50 Sulfa (Sulfonamide Allergy Intermediate SWELLING Verified 01/27/25 07:50 Antibiotics) [SULFA (SULFONAMIDE ANTIBIOTICS)] Review of Systems Review of Systems: Constitutional : No Fever, No Chills ENT/Mouth : No Ear Pain, No Hoarseness, No sore throat Eyes: No Eye Pain, No Swelling, No Redness, No Foreign Body Cardiovascular : No Chest Pain, No SOB Respiratory : No Cough, No Dyspnea Gastrointestinal : No Nausea, No Vomiting, No Diarrhea, No abdominal Pain Genitourinary : No Dysuria, No Hematuria Musculoskeletal : positive joint pain, No Myalgias, pos Joint Swelling Skin : No Skin lacerations, No rash Neuro : No Weakness, No Numbness, No Loss of Consciousness, No Dizziness, No Headache All other systems reviewed and are negative [facility] Past Medical History Attestation statement: The following information was validated with the patient. Source: old records reviewed Medical History Abdominal bloating with cramps Chronic constipation Migraine High cholesterol Surgical History Hx of dilation and curettage History of tonsillectomy and adenoidectomy History of hip surgery H/O laparoscopy Hx of colonoscopy Family History Family History Mother Breast cancer Social History Social History Household Members Other:: Single Alcohol intake: current Alcohol intake frequency: holidays/special occasions only Patient Tobacco Use Status: Current everyday Tobacco user Tobacco use type: Cigarette Cigarettes Per Day: 4 Advance Directives: No Advance Directives Information Provided: No Do you have a plan to hurt others: No Plan Current occupational status: employed 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 Oriented X3. No acute distress. Eyes: Pupils equal, round and reactive to light. ENT: Pharynx normal. Neck: Normal inspection. Neck supple. CVS: Pulses normal. Respiratory: No respiratory distress. Abdomen: Soft and nontender. Skin: Skin warm and dry. Normal skin color. Extremities: No lower extremity edema. L foot ttp with contusion on dorsum of L foot - SILT intact, 2+ DP/PT pulses, no other injury noted Neuro: Oriented X 3. No motor deficit. No sensory deficit. CN2-12 intact Medical Decision Making Medical Decision Making MDM Narrative: 54 yo female with PMH of constipation/arthritis/bunion here with isolated direct blow to L foot at work she is NV intact, will obtain xray of foot - place in crutches and short boot. PO muscle relaxers ordered. Differential Diagnosis Differential Diagnoses: The differential diagnosis associated with the presentation includes sprain, strain, fracture, contusion Admission/Observation Consideration of admission/observation: Escalation of care including admission/observation considered can be trialed as outpatient Independent Interpretation I performed an independent interpretation of an: Plain X-Ray (no fx) Radiology Impression Discussion of test interpretation with radiology: I have reviewed the radiologist's reading. External Record Review External record reviewed: Outpatient record Prescription Management I considered prescription management with: Pain Medication Procedures Orthopedic Splinting/Casting Injury #1: Side: left Lower Extremity Injury Location: foot Lower Extremity Immobilizer: boot orthosis Other Orthopedic Equipment: crutches Discharge Plan Discharge Clinical Impression: Contusion of foot Qualifiers: Encounter type: initial encounter Laterality: left Qualified Code(s): S90.32XA - Contusion of left foot, initial encounter Patient Disposition: Home, Self-Care Instructions: Foot Contusion (ED) Additional Instructions: no broken bone on xray return for worsening pain, no improvement in 1 week, cold blue numb toes use crutches for the next 3 days and then use walking boot for 1 week take tylenol and motrin for pain - use muscle relaxers as well keep elevated as much as possible for the next 3 days CLINICAL HISTORY: shut in door 3 view left foot Comparison: None Findings: Moderately severe hallux valgus with associated degenerative change and subluxation at the 1st metatarsophalangeal joint. No ankle effusion. No radiopaque foreign body. IMPRESSION: No fracture or malalignment. Moderately severe hallux valgus. Prescriptions: New cyclobenzaprine 10 mg tablet 10 mg PO TID PRN (Reason: muscle spasm) Qty: 20 0RF No Action methadone 44 mg PO DAILY celecoxib [Celebrex] 200 mg capsule 200 mg PO BID 30 Days Qty: 60 0RF hydroxyzine HCl 25 mg tablet 25 mg PO BEDTIME PRN (Reason: anxiety) losartan 50 mg tablet 50 mg PO QAM Stand Alone Forms: Work/School Release Print Language: Greenlandic
[2025-01-27 09:08] VITALS: BP 146/80; PULSE 82; RESP 19; TEMP 36.6; O2SAT 98
== END 2025-01-27 09:08 | disposition home or self-care (01) ==
PROVIDERS: Emergency Provider Emergency Medicine
DX: S90.32XA Contusion of left foot, initial encounter (principal); M79.672 Pain in left foot; Y29.XXXA Contact with blunt object, undetermined intent, initial encounter; Y93.9 Activity, unspecified; Y92.9 Unspecified place or not applicable; Y99.0 Civilian activity done for income or pay; Z79.899 Other long term (current) drug therapy
CPT/HCPCS: 29515; 73630; 99283; 99284

== ENCOUNTER → 2025-01-27 08:00 | Outpatient (BNV) | payer OTHER, SELFPAY | PROVIDERS: Emergency Provider Emergency Medicine; Visit Provider Radiology Vascular & Interventional Radiology | DX: M20.12 Hallux valgus (acquired), left foot (principal) | CPT/HCPCS: 73630 ==